=== PATIENT | male | born 1975 | race Caucasian/White ===

== ENCOUNTER 2017-11-23 10:27 | Inpatient (IN) | payer BC ==
[2017-11-23] MEDS ORDERED: IBUPROFEN 200 MG TAB PO PRN (16:11)
[2017-11-23] MEDS ORDERED: diphenhydrAMINE 25 MG CAP PO PRN (16:11)
[2017-11-23] MEDS ORDERED: PROMETHAZINE HCL 25 MG/ML INJ IVP PRN (16:16)
[2017-11-23] MEDS ORDERED: ACETAMINOPHEN 325 MG TAB PO PRN (16:16)
--- NOTE | 2017-11-23 16:52 | GHP ---
[f rep st] HISTORY AND PHYSICAL DATE OF ADMISSION: 11/23/2017 CHIEF COMPLAINT: Nausea and vomiting. 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 In September, he developed some G I distress including nausea and decreased appetite, and his family practice doctor ordered a CAT scan , which was consistent with a possible appendicitis, and he went to surgery with Dr. Grady at [facility] on September 19. 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 He was found to have an omental mets. A port was placed on October 25 and he started chemo on November 01. He was rehospitalized on at [facility], for 5 days, for small bowel obstruction and they also drained some malignant ascites. He continues on chemotherapy with his last chemo last week. Since his last chemo, he has had intractable nausea and vomiting. He has had minimal p.o. intake for 1 wee k. He is passing gas and having bowel movements, and it has been loose for the last 2 days. He desc ribes periumbilical pain that comes and goes, and does improve after an episode of flatus. There has been no fever. He has lost 41 pounds since disease onset. PAST MEDICAL HISTORY: 1. Signet ring cell carcinoma of the appendix with stage IV colon cancer and omental metastases. 2. Small bowel obstruction. MEDICATIONS: Please see computer record for full detailed list. ALLERGIES: No known drug allergies. SOCIAL HISTORY: Social alcohol, with smoking a quarter to a half a pack per day prior to his diagnos is but none since then. Lives with his , and they have 2 children. He is employed in [employer]. REVIEW OF SYSTEMS: Complete review of systems obtained. Review of systems negative regarding consti tutional, HEENT, GI, pulmonary, cardiovascular, , hematology, skin, musculoskeletal, endocrine, psy ch, except for positives and negatives as in HPI. FAMILY HISTORY: Uncle with colon cancer. A cousin with cervical cancer and lung cancer. Another co usin with testicular cancer. PHYSICAL EXAMINATION: GENERAL: Well-developed, well-nourished male, in no distress. VITAL SIGNS: Temperature 36.2, pulse 88, blood pressure 123/91, saturating 93% on room air. EYES: Normal conjunc tivae. Pupils equal and react to light. ENT: Normal ears and nose. Hearing intact. Normal teeth. Oropharynx moist. NECK: Trachea midline. No thyromegaly. CHEST: Normal effort. LUNGS: Clear t o auscultation bilaterally. CARDIOVASCULAR: Regular rate, rhythm. No murmur. No lower extremity e jayme. ABDOMEN: Soft, mildly distended. Minimal tenderness. No hepatosplenomegaly. SKIN: Warm, d ry, intact. No rash. MUSCULOSKELETAL: No cyanosis or clubbing. Strength 5/5 upper and lower extre mities. NEURO: Cranial nerves intact. Normal sensation to light touch. PSYCH: Alert and oriented x3. Normal affect. Normal judgment. Normal memory. LABORATORY DATA: White count 3.83, hematocrit 42.4, platelets 302. Sodium 141, potassium 4.4, chlor abdulkadir 100, bicarb 26. BUN 10, creatinine 0.9. Glucose 113. AST is 91, ALT is 155. Alk phos is 194. Abdominal x-ray shows a paucity of gas and possible ascites. Chest x-ray is negative. Abdominal x- ray was personally interpreted by me and my personal interpretation is similar to Radiology. Minimal gas throughout the intestines. ASSESSMENT/PLAN: 1. Intractable nausea and vomiting. Differential diagnosis is recurrent small bowel obstruction elba janine recurrent ascites versus worsening tumor. Will check a CT scan of the abdomen and pelvis. 2. Signet ring cell cancer of the appendix with stage IV colon cancer. Dr. Lazaro to see in consul tation. 3. Dramatic weight loss of 40 pounds. I suspect he is malnourished. Will consult dietary. Per Dr. Lazaro, consider TPN. CODE STATUS: Full. ADMISSION STATUS: Will admit to inpatient as he is medically complex. Anticipate greater than 2 mid nights for stabilization. DVT PROPHYLAXIS: He is high risk. Will place on subcu Lovenox. /[id number]/MODL
[2017-11-23] MEDS ORDERED: IOPAMIDOL (ISOVUE-300) 100 ML BTL ONE (17:49)
[2017-11-23] MEDS: PROCHLORPERAZINE MALEATE 10 MG TAB PO PRN (18:09)
[2017-11-23] MEDS: HYDROmorphONE/DILAUDID 2 MG TAB PO PRN (18:48)
[2017-11-23] MEDS: LORazepam 0.5 MG TAB PO PRN (18:48)
[2017-11-23] MEDS: ONDANSETRON 4 MG/2 ML VIAL IVP PRN (18:56)
[2017-11-23] MEDS ORDERED: ZOLPIDEM TARTRATE 5 MG TAB PO ONE (21:04)
[2017-11-24] MEDS: NS 1,000 ML IV SCH ×2 (03:23→16:08)
[2017-11-24 03:41] LABS: PLATELET COUNT 240 10^3/uL (150-400)
[2017-11-24] MEDS ORDERED: ENOXAPARIN 40 MG/0.4 ML SYR SC SCH (09:00)
--- NOTE | 2017-11-24 09:33 | PDMN ---
Medical Necessity Medical necessity: M370 vomiting- A-1- in pt on chemo, recurrent ascites and poss partial SBO vs worsening tumor, Signet ring cell cancer of the appendix with stage IV colon Ca. - dramatic wt. loss of 40 LBS., consider TPN, oncology consult
[2017-11-24] MEDS ORDERED: D10W 1,000 ML IV PRN (10:03)
[2017-11-24] MEDS ORDERED: LIDOCAINE 1% 300 MG/30 ML SDV ONE (10:26)
[2017-11-24 11:11] LABS: PLATELET COUNT 225 10^3/uL (150-400)
[2017-11-24 11:27] LABS: INR 1.19 (0.83-1.16); PROTIME(PATIENT) 15.3 SEC (12.0-15.0)
[2017-11-24] MEDS: ESCITALOPRAM OXALATE 10 MG TAB PO SCH (12:33)
[2017-11-24] MEDS: LORazepam 0.5 MG TAB PO PRN ×2 (12:36→19:03)
[2017-11-24] MEDS: HYDROmorphONE/DILAUDID 2 MG TAB PO PRN ×2 (13:25→19:39)
--- NOTE | 2017-11-24 14:57 | ASMTCMCOM ---
CM Note CM Note Notes: Pt present with dehydration and n/v, pt with appendix and colon cancer. Pt is having chemo treatments. Chart indicates pt lives w and two children. CT scan pending, considering bowel obstruction or worsening tumor. POWER TECHNICIAN only therapy ordered at this time. Pt to be transferred to . to follow for d/c planning. Date Signed: 11/24/2017 02:56 PM Electronically Signed By:SWATI Bobo
--- NOTE | 2017-11-24 16:11 | HOSPPROG ---
Hospitalist Progress Note Assessment/Plan: * Signet ring cell carcinoma of appendix with colon cancer - stage IV -on chemo -needs improved nutritional status for impending surgery * Malignant ascites -s/p paracentesis * Partial SBO -advance diet to clears * Severe protein calorie malnutrition -start TPN -cyclic TPN to continue upon discharge Subjective: No change, thirsty Objective: Vital Signs Temp Pulse Resp BP Pulse Ox 36.8 C 73 15 132/81 H 91 L 11/24/17 16:00 11/24/17 16:00 11/24/17 16:00 11/24/17 16:00 11/24/17 16:00 Microbiology 11/22/17 19:40 Gastrointestinal Tract Panel (PCR) - Final Stool No Organism Detected Laboratory Results 11/24/17 10:50 11/24/17 10:50 11/23/17 11/24/17 11/25/17 05:59 05:59 05:59 Intake Total 250 Output Total 2500 Balance 250 -2500 PT 15.3 SEC (12.0-15.0) H 11/24/17 10:50 INR 1.19 (0.83-1.16) H 11/24/17 10:50 case d/w Dr. Lazaro - patient to discharge with cyclic TPN - needs to be optimized for large surgery planned CT abd - ascites, partial sbo - Physical Exam Constitutional: no apparent distress, appears nourished, not in pain Cardiovascular: regular rate and rhythym, no murmur, rub, or gallop Respiratory: no respiratory distress, no rales or rhonchi, clear to auscultation Gastrointestinal: normoactive bowel sounds, soft, non-tender abdomen, no palpable masses Skin: no rashes or abrasions, no fluctuance, no induration Neurologic: AAOx3, sensation intact bilaterally Psychiatric: interacting appropriately, not anxious, not encephalopathic, thought process linear ICD10 Worksheet Patient Problems: Problems Problem Status Onset Malignant ascites Acute - ICD10 Problem Qualifiers (1) Malignant ascites
--- NOTE | 2017-11-24 16:56 | ASMTCMCOM ---
CM Note CM Note Notes: Pt transferred to this afternoon. Per MD note, pt will have cyclic TPN at DC. Sent referral to [employer] [facility] to run benefits. met with pt to discuss DC plan. recommended palliative to pt and he asked for information to share with his . This was provided. DC unclear. CM will continue to follow. Date Signed: 11/24/2017 04:56 PM Electronically Signed By:Fe Louis LCSW
--- NOTE | 2017-11-24 17:32 | GCON ---
[f rep st] CONSULTATION A MEDICAL ONCOLOGY FOLLOWUP CONSULTATION. REFERRING PHYSICIAN: Em Maria MD REASON FOR CONSULTATION: Ongoing management of signet ring adenocarcinoma of the appendix with the p eritoneal carcinomatosis. RECOMMENDATIONS: 1. Agree with clear liquids. 2. Agree with therapeutic paracentesis. 3. Patient will need nutritional support since we are trying to get him in shape for definitive surg chuy with neoadjuvant chemotherapy. TPN is appropriate in this setting. 4. The patient is due for his next cycle of chemotherapy on November 29, 2017. Hopefully, we will be able to keep him on schedule. 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 This was diagnosed when it was thought he cain d appendicitis. He has had a relatively stormy course since then. He has had 2 cycles of chemothera py thus far. He has had a very difficult time getting adequate food and fluids in. He presented wit h nausea and decreased oral intake as well as colicky abdominal pain. He was seen in the office yest shoaib and admitted for further evaluation. Patient was found to have malignant ascites as well as a partial small bowel obstruction. Currently, he is able to tolerate clear liquids and had a bowel mov ement this morning. Therefore, I do not think he is completely obstructed, and we will try conservat carlos management. His albumin is down to 2.4, and in view of the ongoing need for chemotherapy, and ho pefully to be able to get him in shape for definitive surgery with Dr. Kofi Powers in [place], and hopefu lly to get him in shape to be a candidate for hyperthermic intraperitoneal chemotherapy treatment for his intraperitoneal carcinomatosis. I think total parenteral nutrition is appropriate in this setti ng. Patient will also need home care upon discharge. HISTORY OF PRESENT ILLNESS: Please see assessment. PAST MEDICAL HISTORY: In addition to his appendiceal carcinoma, is essentially otherwise unremarkabl e. SOCIAL HISTORY: Patient drinks alcohol occasionally. He did smoke cigarettes until his diagnosis, b ut has now quit. He is employed in [employer]. Lives with his and 2 children. FAMILY HISTORY: Remarkable for an uncle having had colon cancer. There is also a cousin with cervic al and lung cancer and a cousin with testicular cancer. REVIEW OF SYSTEMS: Remarkable for poor p.o. intake, nausea, abdominal pain, weakness, and fatigue. His 10-system review is otherwise unremarkable. PHYSICAL EXAMINATION: GENERAL: This morning reveals a well developed, alert, white male in no acute distress. HEENT: No jaundice. LUNGS: Clear to auscultation. CARDIAC: Regular rate and rhythm. ABDOMEN: A slightly distended abdomen. It does seem to have a fluid wave today, and he has tendern ess just to the left of midline near his umbilicus. IMAGING: His CT of the abdomen shows ascites and a narrowed area very close to where he identifies t he pain. This is likely secondary to his known peritoneal carcinomatosis. LABORATORY EXAM: Shows sodium of 137. His potassium is 3.8. His creatinine is 0.8, and his total b ilirubin is 0.5. Albumin is 2.4. Lipase is normal at 79. His white count is normal at 4.11. His h emoglobin is 11.0, and his platelet count is 240,000. /[id number]/MODL
[2017-11-24] MEDS: TPN 1 EA BAG IV SCH (21:01)
[2017-11-24] MEDS ORDERED: ZOLPIDEM TARTRATE 5 MG TAB PO ONE (22:59)
[2017-11-25] MEDS: NS 1,000 ML IV SCH (05:09)
[2017-11-25 05:39] LABS: INR 1.15 (0.83-1.16); PROTIME(PATIENT) 14.9 SEC (12.0-15.0)
[2017-11-25 06:05] LABS: PLATELET COUNT 217 10^3/uL (150-400)
[2017-11-25] MEDS: HYDROmorphONE/DILAUDID 2 MG TAB PO PRN ×2 (09:38→18:53)
[2017-11-25] MEDS: LORazepam 0.5 MG TAB PO PRN ×2 (09:38→18:53)
[2017-11-25] MEDS: ESCITALOPRAM OXALATE 10 MG TAB PO SCH (09:39)
[2017-11-25] MEDS: ENOXAPARIN 40 MG/0.4 ML SYR SC SCH (09:39)
--- NOTE | 2017-11-25 13:02 | SOAPPROG ---
SOAP Progress Note Assessment/Plan: Assessment/Plan: 42yo man w peritoneal carcinomatosis from a signet ring adenoca of the appendix dx in oct 2017 admitted w N/V and weight loss 1. N/V - not completely obstructed but likely intermittent pSBO Continuing clears w TPN/IVF doing better today will need TPN on discharge cont anti-emetics and supportive care 2. ascites - s/p paracentesis no e/o SBP abd pain improved 3. Signet ring adenoca - nect cycle of chemo due 11/29/2017 then plan debulking w Dr Kofi Powers followed by [facility] 4. Pain - currently controlled 11/25/17 12:58 Subjective: Doing better today no vomiting +BM pain improved Objective: Vital Signs Temp Pulse Resp BP Pulse Ox 36.5 C 77 18 98/70 L 92 11/25/17 12:37 11/25/17 12:37 11/25/17 12:37 11/25/17 12:37 11/25/17 12:37 Microbiology 11/24/17 09:45 Gram Stain - Final Peritoneal Fluid - Aspirate 11/22/17 19:40 Gastrointestinal Tract Panel (PCR) - Final Stool No Organism Detected Laboratory Results 11/25/17 05:15 11/25/17 05:15 11/24/17 11/25/17 11/26/17 05:59 05:59 05:59 Intake Total 250 1790 Output Total 2500 Balance 250 -710 PT 14.9 SEC (12.0-15.0) 11/25/17 05:15 INR 1.15 (0.83-1.16) 11/25/17 05:15 Gen - young man, NAD but fatigued appearing HEENT - anicteric CV - RRR Abd - soft, BS+ Ext - no sig edema ICD10 Worksheet Patient Problems: Problems Problem Status Onset Malignant ascites Acute
--- NOTE | 2017-11-25 16:31 | HOSPPROG ---
Hospitalist Progress Note Assessment/Plan: * Signet ring adenocarcinoma of appendix with peritoneal carcinomatosis -on chemo -eventual hyperthermic intraperitoneal chemo with debulking surgery (Dr. Powers) -needs improved nutritional status for impending surgery * Malignant ascites -s/p paracentesis * Partial SBO -try full liquids - if not able to tolerate will back down to clears * Severe protein calorie malnutrition -start TPN -cyclic TPN to continue upon discharge Subjective: Tolerating clears, really want to try something more solid, specifically fruit and [employer] parfait Objective: Vital Signs Temp Pulse Resp BP Pulse Ox 36.5 C 77 18 98/70 L 92 11/25/17 12:37 11/25/17 12:37 11/25/17 12:37 11/25/17 12:37 11/25/17 12:37 Microbiology 11/24/17 09:45 Gram Stain - Final Peritoneal Fluid - Aspirate Laboratory Results 11/25/17 05:15 11/25/17 05:15 11/24/17 11/25/17 11/26/17 05:59 05:59 05:59 Intake Total 250 1790 Output Total 2500 Balance 250 -710 PT 14.9 SEC (12.0-15.0) 11/25/17 05:15 INR 1.15 (0.83-1.16) 11/25/17 05:15 - Physical Exam Constitutional: no apparent distress, appears nourished, not in pain Cardiovascular: regular rate and rhythym, no murmur, rub, or gallop Respiratory: no respiratory distress, no rales or rhonchi, clear to auscultation Gastrointestinal: normoactive bowel sounds, soft, non-tender abdomen, no palpable masses Skin: no rashes or abrasions, no fluctuance, no induration Neurologic: AAOx3, sensation intact bilaterally Psychiatric: interacting appropriately, not anxious, not encephalopathic, thought process linear ICD10 Worksheet Patient Problems: Problems Problem Status Onset Malignant ascites Acute - ICD10 Problem Qualifiers (1) Malignant ascites
[2017-11-25] MEDS: TPN 1 EA BAG IV SCH (21:03)
[2017-11-25] MEDS: ZOLPIDEM TARTRATE 5 MG TAB PO PRN (22:56)
[2017-11-26 05:52] LABS: PLATELET COUNT 222 10^3/uL (150-400)
[2017-11-26 05:59] LABS: INR 1.1 (0.83-1.16); PROTIME(PATIENT) 14.4 SEC (12.0-15.0)
[2017-11-26] MEDS: ESCITALOPRAM OXALATE 10 MG TAB PO SCH (10:12)
[2017-11-26] MEDS: ENOXAPARIN 40 MG/0.4 ML SYR SC SCH (10:12)
[2017-11-26] MEDS: HYDROmorphONE/DILAUDID 2 MG TAB PO PRN ×2 (10:50→18:05)
[2017-11-26] MEDS: LORazepam 0.5 MG TAB PO PRN ×2 (10:50→18:05)
--- NOTE | 2017-11-26 10:53 | SOAPPROG ---
SOAP Progress Note Assessment/Plan: Assessment/Plan: 42yo man w peritoneal carcinomatosis from a signet ring adenoca of the appendix dx in oct 2017 admitted w N/V and weight loss 1. N/V - not completely obstructed but likely intermittent pSBO Continuing clears w TPN/IVF doing better tolerated clears yesterday would advance to soft/bland diet today will need TPN on discharge cont anti-emetics and supportive care 2. ascites - s/p paracentesis no e/o SBP abd pain improved 3. Signet ring adenoca - next cycle of chemo due 11/29/2017 then plan debulking w Dr Kofi Powers followed by [facility] 4. Pain - currently controlled discharge in next day or so 11/25/17 12:58 11/26/17 10:52 Subjective: No acute events tolerated clears yesterday feeling stronger Objective: Vital Signs Temp Pulse Resp BP Pulse Ox 36.7 C 75 18 104/72 94 11/26/17 05:35 11/26/17 05:35 11/26/17 05:35 11/26/17 05:35 11/26/17 05:35 Microbiology 11/24/17 09:45 Gram Stain - Final Peritoneal Fluid - Aspirate Laboratory Results 11/26/17 05:40 11/26/17 05:40 11/25/17 11/26/17 11/27/17 05:59 05:59 05:59 Intake Total 1790 3092 Output Total 2500 250 Balance -710 2842 PT 14.4 SEC (12.0-15.0) 11/26/17 05:40 INR 1.10 (0.83-1.16) 11/26/17 05:40 Gen - NAD HEENT - anicteric CV - RRR Lungs - clear anteriorly Abd - soft, BS+, no sig ascites Ext - no edema ICD10 Worksheet Patient Problems: Problems Problem Status Onset Malignant ascites Acute
--- NOTE | 2017-11-26 15:54 | HOSPPROG ---
Hospitalist Progress Note Assessment/Plan: * Signet ring adenocarcinoma of appendix with peritoneal carcinomatosis (but no mets) -on chemo -eventual hyperthermic intraperitoneal chemo with debulking surgery (Dr. Powers) -needs improved nutritional status for impending surgery * Malignant ascites -s/p paracentesis * Partial SBO -did poorly with advancing diet - will return to liquids * Severe protein calorie malnutrition -cyclic TPN to continue upon discharge -uses port for continuous chemo infusion at home -may need PICC for TPN Subjective: Ate eggs and toast with increased GI upset, but thinks GI upset was coming on already before he ate them, so not sure they are to blame. Objective: Vital Signs Temp Pulse Resp BP Pulse Ox 36.7 C 105 H 18 124/94 H 94 11/26/17 15:46 11/26/17 15:46 11/26/17 15:46 11/26/17 15:46 11/26/17 15:46 Microbiology 11/24/17 09:45 Gram Stain - Final Peritoneal Fluid - Aspirate Laboratory Results 11/26/17 05:40 11/26/17 05:40 11/25/17 11/26/17 11/27/17 05:59 05:59 05:59 Intake Total 1790 3092 Output Total 2500 250 Balance -710 2842 PT 14.4 SEC (12.0-15.0) 11/26/17 05:40 INR 1.10 (0.83-1.16) 11/26/17 05:40 - Physical Exam Constitutional: no apparent distress, appears nourished, not in pain Cardiovascular: regular rate and rhythym, no murmur, rub, or gallop Respiratory: no respiratory distress, no rales or rhonchi, clear to auscultation Gastrointestinal: normoactive bowel sounds, soft, non-tender abdomen, no palpable masses Skin: no rashes or abrasions, no fluctuance, no induration Neurologic: AAOx3, sensation intact bilaterally Psychiatric: interacting appropriately, not anxious, not encephalopathic, thought process linear ICD10 Worksheet Patient Problems: Problems Problem Status Onset Malignant ascites Acute - ICD10 Problem Qualifiers (1) Malignant ascites
[2017-11-26] MEDS: TPN 1 EA BAG IV SCH (22:04)
[2017-11-26] MEDS ORDERED: ALTEPLASE 2 MG VIAL IVP PRN (22:56)
[2017-11-27] MEDS: ZOLPIDEM TARTRATE 5 MG TAB PO PRN ×2 (00:04→23:16)
[2017-11-27 06:19] LABS: PLATELET COUNT 203 10^3/uL (150-400)
[2017-11-27 06:28] LABS: INR 1.06 (0.83-1.16)
[2017-11-27] MEDS: ENOXAPARIN 40 MG/0.4 ML SYR SC SCH (09:37)
[2017-11-27] MEDS: ESCITALOPRAM OXALATE 10 MG TAB PO SCH (09:37)
[2017-11-27] MEDS: HYDROmorphONE/DILAUDID 2 MG TAB PO PRN ×3 (09:43→20:04)
[2017-11-27] MEDS: LORazepam 0.5 MG TAB PO PRN ×3 (09:43→20:05)
[2017-11-27] MEDS ORDERED: ALTEPLASE 2 MG VIAL IVP PRN (11:59)
--- NOTE | 2017-11-27 11:59 | HOSPPROG ---
Hospitalist Progress Note Assessment/Plan: * Signet ring adenocarcinoma of appendix with peritoneal carcinomatosis, no mets -on chemo -eventual hyperthermic intraperitoneal chemo with debulking surgery (Dr. Powers) -needs improved nutritional status for impending surgery -needs Rx at dc for dexter ornelas amblula * Malignant ascites -s/p paracentesis for 2.5 L on 11/24, no recurrence * Partial SBO - +BM x2 today, tolerating po better * Severe protein calorie malnutrition -cyclic TPN to continue upon discharge -uses port for continuous chemo infusion at home -plan for PICC today * DVT PPLX - Lovenox * Full code * Dispo - cont inpt, likely dc tomorrow. discussed with onc Subjective: PT doing ok. No pain. No vomiting. +BM x2, tolerating some po. no fevers. Objective: Vital Signs Temp Pulse Resp BP Pulse Ox 36.8 C 78 16 101/74 95 11/27/17 09:35 11/27/17 09:35 11/27/17 09:35 11/27/17 09:35 11/27/17 09:35 Microbiology 11/24/17 09:45 Gram Stain - Final Peritoneal Fluid - Aspirate Laboratory Results 11/27/17 06:10 11/27/17 06:10 11/26/17 11/27/17 11/28/17 05:59 05:59 05:59 Intake Total 3092 1805 Output Total 250 Balance 2842 1805 PT 14.0 SEC (12.0-15.0) 11/27/17 06:10 INR 1.06 (0.83-1.16) 11/27/17 06:10 - Physical Exam Constitutional: no apparent distress Eyes: PERRL Ears, Nose, Mouth, Throat: moist mucous membranes Cardiovascular: regular rate and rhythym Respiratory: no respiratory distress Gastrointestinal: normoactive bowel sounds, soft, non-tender abdomen Skin: warm Musculoskeletal: full muscle strength Neurologic: AAOx3 Psychiatric: interacting appropriately ICD10 Worksheet Patient Problems: Problems Problem Status Onset Malignant ascites Acute
--- NOTE | 2017-11-27 12:49 | ASMTCMCOM ---
CM Note CM Note Notes: Loreta from [facility] here and met w/pt. They will follow pt at dc for cyclic TPN; They will most likely be able to provide nursing care also. Referral was sent to [facility] by they do not contract w/pt's insurance. Possible dc tomorrow. Current dc plan: home w/family, will be followed by [facility] for Home inf and Nursing Date Signed: 11/27/2017 12:49 PM Electronically Signed By:Esthela Mosquera RN
[2017-11-27] MEDS ORDERED: LIDOCAINE 1% 300 MG/30 ML SDV ONE (13:34)
[2017-11-27] MEDS: HYDROmorphONE/DILAUDID 1 MG/ML INJ IVP PRN ×2 (14:47→23:16)
--- NOTE | 2017-11-27 15:11 | SOAPPROG ---
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 * N/V/pain: likely intermittent partial SBO. Improved this admission. Plan supportive care with TPN, diet as tolerated, and pain meds while moving forward with chemo. * Ascites: paracentesis 11/24/17 with improvement in AP. * Peritoneal carcinomatosis, signet ring adenoCA: C3 FOLFOX due 11/29/17. He is scheduled with Dr. Lazaro. Discussed with pt, , RN. Anticipate d/c home tomorrow on TPN, oral pain meds. 11/27/17 15:08 Subjective: Pain manageable with current regimen. Awaiting PICC line. O: VS reviewed. Limited exam as leaving for PICC. Gen: fatigued appearing, A&O, NAD. Lungs: breathing comfortably. Laboratory Tests 11/27/17 11/27/17 06:10 06:10 WBC 3.31 L Hgb 11.8 L Hct 35.8 L Plt Count 203 Sodium 138 Potassium 4.1 Chloride 103 Carbon Dioxide 29 Anion Gap 6 L BUN 10 Creatinine 0.7 Estimated GFR > 60 Glucose 110 H Total Bilirubin 0.1 D AST 59 ALT 96 H Alkaline Phosphatase 127 H Objective: Vital Signs Temp Pulse Resp BP Pulse Ox 36.8 C 84 18 119/78 95 11/27/17 09:35 11/27/17 12:31 11/27/17 12:31 11/27/17 12:31 11/27/17 12:31 Microbiology 11/24/17 09:45 Gram Stain - Final Peritoneal Fluid - Aspirate Body Fluid Culture - Final Laboratory Results 11/27/17 06:10 11/27/17 06:10 11/26/17 11/27/17 11/28/17 05:59 05:59 05:59 Intake Total 3092 1805 Output Total 250 Balance 2842 1805 PT 14.0 SEC (12.0-15.0) 11/27/17 06:10 INR 1.06 (0.83-1.16) 11/27/17 06:10 ICD10 Worksheet Patient Problems: Problems Problem Status Onset Malignant ascites Acute
[2017-11-27] MEDS: TPN 1 EA BAG IV SCH (21:21)
[2017-11-28] MEDS: PROCHLORPERAZINE MALEATE 10 MG TAB PO PRN (08:09)
[2017-11-28] MEDS: ESCITALOPRAM OXALATE 10 MG TAB PO SCH (08:09)
[2017-11-28] MEDS: ENOXAPARIN 40 MG/0.4 ML SYR SC SCH (09:13)
[2017-11-28] MEDS: LORazepam 0.5 MG TAB PO PRN ×2 (09:36→20:02)
[2017-11-28] MEDS: ONDANSETRON 4 MG/2 ML VIAL IVP PRN (09:37)
[2017-11-28] MEDS: HYDROmorphONE/DILAUDID 2 MG TAB PO PRN ×2 (09:37→20:01)
--- NOTE | 2017-11-28 10:05 | HOSPPROG ---
Hospitalist Progress Note Assessment/Plan: * Signet ring adenocarcinoma of appendix with peritoneal carcinomatosis, no mets, has PORT -due for chemo tomorrow, which may be delayed until tolerating TPN changes, discussed with onc -eventual hyperthermic intraperitoneal chemo with debulking surgery (Dr. Powers) -needs improved nutritional status for impending surgery -requests Rx at discharge for dilaudid, ativan, ambien * Malignant ascites -s/p paracentesis for 2.5 L on 11/24, no recurrence -may require repeat para vs shirley drain if recurs * Partial SBO - tolerating po better, but increased diarrhea this am (?12/08 tpn) * Severe protein calorie malnutrition - cyclic TPN started last night (changed from 70 / hr for 24 hrs to 140 / hr for 12 hrs) and pt did not tolerate this increased rate with nausea and diarrhea this am -PICC in place -will reduce rate of cyclic TPN and increase to 14 hr infusion, may take a few days to slowly increase to goal to see if he'll tolerate the cyclical plan * Hyperkalemia - likely due to TPN changes -reduce K in TPN, discussed with pharmacy -repeat K 5.1 * Diarrhea - likely due to TPN. -check C diff if persists -immodium if persists and c diff neg * DVT PPLX - Lovenox * Full code * Dispo - cont inpt, d/c when tolerating TPN and symptoms improved Subjective: Pt had a rough night with doubling rate of tpn in attempt to change to cyclic plan. Severe nausea, no vomiting. +diarrhea, multiple watery stools this am with increased abdominal distention and discomfort. No fevers. Objective: Vital Signs Temp Pulse Resp BP Pulse Ox 36.8 C 103 H 16 112/76 91 L 11/28/17 08:00 11/28/17 08:00 11/28/17 08:00 11/28/17 08:00 11/28/17 08:00 Microbiology 11/24/17 09:45 Gram Stain - Final Peritoneal Fluid - Aspirate Body Fluid Culture - Final Laboratory Results 11/27/17 06:10 11/28/17 06:00 11/27/17 11/28/17 11/29/17 05:59 05:59 05:59 Intake Total 1805 2343 Balance 1805 2343 PT 14.0 SEC (12.0-15.0) 11/27/17 06:10 INR 1.06 (0.83-1.16) 11/27/17 06:10 - Physical Exam Constitutional: no apparent distress Eyes: PERRL Ears, Nose, Mouth, Throat: moist mucous membranes Cardiovascular: regular rate and rhythym Respiratory: no respiratory distress, clear to auscultation Gastrointestinal: normoactive bowel sounds, other (soft, +increased distention, no r/r/g or peritoneal signs) Skin: warm Musculoskeletal: full muscle strength Neurologic: AAOx3 Psychiatric: interacting appropriately ICD10 Worksheet Patient Problems: Problems Problem Status Onset Malignant ascites Acute
--- NOTE | 2017-11-28 18:26 | ASMTCMCOM ---
CM Note CM Note Notes: Spoke with Loreta from [facility] who requested a copy of patient's PICC line insertion. This report was faxed to her. Patient was not quite ready for d/c. Dr. Thurston would like patient to tolerate TPN and have additional symptom improvement before d/c. CM will follow. Date Signed: 11/28/2017 06:26 PM Electronically Signed By:Alicia Hubbard LCSW
[2017-11-28] MEDS: TPN 1 EA BAG IV SCH (21:15)
[2017-11-28] MEDS: ZOLPIDEM TARTRATE 5 MG TAB PO PRN (23:50)
[2017-11-28] MEDS: HYDROmorphONE/DILAUDID 1 MG/ML INJ IVP PRN (23:51)
[2017-11-29] MEDS: LORazepam 0.5 MG TAB PO PRN ×2 (11:37→21:06)
[2017-11-29] MEDS: HYDROmorphONE/DILAUDID 2 MG TAB PO PRN ×3 (11:37→20:20)
[2017-11-29] MEDS: ENOXAPARIN 40 MG/0.4 ML SYR SC SCH (12:01)
[2017-11-29] MEDS: ESCITALOPRAM OXALATE 10 MG TAB PO SCH (12:02)
--- NOTE | 2017-11-29 13:10 | ASMTCMCOM ---
CM Note CM Note Notes: Pt will likely dc home tomorrow if able to tolerate TPN goal tonight. Met w/pt along w/MD and pharmacist and answered pt and 's questions. He will be doing cylic (evening til morning) TPN at home. [facility] will provide TPN/supplies/nursing care. TPN formula faxed to [facility] per request. Pt will be going to [facility] tomorrow afternoon for chemo. Loreta from [facility] will be here btw 8:30-9 tomorrow morning to see pt. CM will follow. Date Signed: 11/29/2017 01:10 PM Electronically Signed By:Esthela Mosquera RN
--- NOTE | 2017-11-29 13:14 | SOAPPROG ---
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 Had increased sxs yesterday attributed to changing TPN to cyclic. * N/V/pain: likely intermittent partial SBO. Improved this admission. Plan supportive care with TPN, diet as tolerated, and pain meds while moving forward with chemo. * Ascites: paracentesis 11/24/17 with improvement in AP. * Peritoneal carcinomatosis, signet ring adenoCA: C3 FOLFOX due today. Anticipate d/c tomorrow morning and plan chemo in office after d/c. Dr. Lazaro aware. - have asked [facility] scheduling to contact pt's to schedule chemo tomorrow * Pain: due to above. *I sent prescriptions to his pharmacy for dilaudid, lorazepam, Ambien per his 's request. They do not need written rxs on discharge.* Discussed with pt, , RN. Anticipate d/c home tomorrow on TPN, oral pain meds. 11/29/17 13:10 Objective: Vital Signs Temp Pulse Resp BP Pulse Ox 36.6 C 77 16 107/74 93 11/29/17 09:53 11/29/17 09:53 11/29/17 09:53 11/29/17 09:53 11/29/17 09:53 Laboratory Results 11/27/17 06:10 11/29/17 05:30 11/28/17 11/29/17 11/30/17 05:59 05:59 05:59 Intake Total 2343 2361 Output Total 500 Balance 2343 1861 PT 14.0 SEC (12.0-15.0) 11/27/17 06:10 INR 1.06 (0.83-1.16) 11/27/17 06:10 ICD10 Worksheet Patient Problems: Problems Problem Status Onset Malignant ascites Acute
--- NOTE | 2017-11-29 16:43 | HOSPPROG ---
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 ASSESSMENT/PLAN: Signet ring adenocarcinoma of appendix, with peritoneal carcinomatosis Partial SBO w/ N/V - resolved Severe protein calorie malnutrition -s/p paracentesis, therapeutic -eventual hyperthermic intraperitoneal chemo with debulking surgery (Dr. Powers) -TPN - discussed with pharmacist - increasing volume today (goal 1.6L) -if pt tolerates TPN at goal by tomorrow AM, DC to home w/ HHC w/ TPN - CM planning. -after DC tomorrow, he will fruit picker chemo pump from [facility] (appt at 1pm), discussed with onc -Controlled substances for discharge sent by Dr. Perry to pharmacy. VTE prophylaxis: Lovenox Code Status: Full Status inpt for > 2 midnight stay. Disposition: medsur with discharge anticipated tomorrow. This pt is new to me. Reviewed chart for visit. Discussed case w/ Oncology, RN, pharmacist, and CM. Answered questions of pt and his . ____ SUBJECTIVE: Pt feels well today, tolerating clear liquids. OBJECTIVE: Physical Exam: General: The patient is a male who is alert and in no acute distress. HEENT: normocephalic, extraocular movements intact, conjunctivae clear. Mucous membranes moist. Neck: trachea midline, no visible masses. CV: +S1/S2, RRR, no MRG. Resp: unlabored, CTAB no RRW. Abd: soft and nondistended. Bowel sounds present. Musculoskeletal: Normal muscle tone/bulk. Neuro: cranial nerves II XII grossly intact. Intact gross motor and sensory function. Psych: appropriate mood and appropriate affect. Skin: No pallor. No petechiae. Heme/lymph: No peripheral edema at bilateral lower legs. Labs/Imaging/Other Tests: Personally reviewed/interpreted. Objective: Vital Signs Temp Pulse Resp BP Pulse Ox 36.8 C 104 H 17 93/77 L 94 11/29/17 15:19 11/29/17 15:19 11/29/17 15:19 11/29/17 15:19 11/29/17 15:19 Laboratory Results 11/27/17 06:10 11/29/17 05:30 11/28/17 11/29/17 11/30/17 05:59 05:59 05:59 Intake Total 2343 2361 Output Total 500 Balance 2343 1861 PT 14.0 SEC (12.0-15.0) 11/27/17 06:10 INR 1.06 (0.83-1.16) 11/27/17 06:10 ICD10 Worksheet Patient Problems: Problems Problem Status Onset Malignant ascites Acute
[2017-11-29 20:14] VITALS: RESP 16
[2017-11-29] MEDS: TPN 1 EA BAG IV SCH (21:03)
[2017-11-29] MEDS: ZOLPIDEM TARTRATE 5 MG TAB PO PRN (22:58)
[2017-11-29] MEDS: HYDROmorphONE/DILAUDID 1 MG/ML INJ IVP PRN (23:02)
[2017-11-30] MEDS: ESCITALOPRAM OXALATE 10 MG TAB PO SCH (09:29)
[2017-11-30] MEDS: ENOXAPARIN 40 MG/0.4 ML SYR SC SCH (09:29)
[2017-11-30 09:39] VITALS: BP 113/78; PULSE 86; TEMP 98.1; O2SAT 93
[2017-11-30] MEDS: HYDROmorphONE/DILAUDID 2 MG TAB PO PRN (11:03)
[2017-11-30] MEDS: LORazepam 0.5 MG TAB PO PRN (11:05)
--- NOTE | 2017-11-30 12:00 | PDIAF ---
- Diagnosis Diagnosis: Adenocarcinoma Code Status: Full Code - Medication Management Discharge Medications: Medications to Continue on Transfer Escitalopram Oxalate [Lexapro 10 MG] 10 mg PO DAILY 11/23/17 [Last Taken ] HYDROmorphone HCL [Dilaudid 2 mg (*)] 2 mg PO Q6 PRN 11/23/17 [Last Taken Unknown] Ibuprofen [Motrin (*)] 200 - 400 mg PO Q6 PRN 11/23/17 [Last Taken Unknown] LORazepam [Ativan (*)] 0.5 - 1 mg PO BID PRN 11/23/17 [Last Taken Unknown] Prochlorperazine Maleate [Compazine 10mg (*)] 10 mg PO Q6 PRN 11/23/17 [Last Taken Unknown] Promethazine HCl [Phenergan 12.5mg tab] 12.5 mg PO Q6 PRN 11/23/17 [Last Taken Unknown] diphenhydrAMINE [Benadryl 25 MG (*)] 25 - 50 mg PO HS PRN 11/23/17 [Last Taken Unknown] TPN [Hyperalimentation] 1 ea IV DAILY21 bag 11/30/17 [Last Taken Unknown] Home Improvement Advisor Antibiotics: NA Discharge Medications: Refer to the Discharge Home Medication list for PRN reason. PICC Care - Routine: Yes - Orders Services needed: Home Care, Registered Nurse Home Care Face to Face: I certify that this patient was under my care and that I had the required [id number] encounter meeting the encounter requirements on the discharge day. My findings support the fact that the patient is homebound as defined in Home Care Face to Face Continued: CMS Chapter 7 Medicare Benefits Manual 30.1.1 , The condition of the patient is such that there exists a normal inability to leave home and consequently, leaving home would require a considerable and taxing effort. Isolation Type: None Oxygen: NA Diet Recommendation: no restrictions on diet Weigh Patient: weekly Diaz: Not applicable - Labs/Radiology CMP Date: 12/04/17 (weekly thereafter) Call or Fax Lab and Imaging Results to: Dr. Lazaro - Follow Up Care Current Providers and Referrals: Patient,NotPresent [Primary Care Provider] - Carlitos Mai MD [Medical Doctor] - Ricardo Lazaro MD [Medical Doctor] - (please follow-up as scheduled)
--- NOTE | 2017-11-30 13:25 | ASMTCMCOM ---
CM Note CM Note Notes: Pt ready for DC today. [facility] will provide TPN and RN. Faxed final orders via [employer]. [facility] will meet pt at home at 6PM today. Date Signed: 11/30/2017 01:25 PM Electronically Signed By:Fe Louis LCSW
--- NOTE | 2017-11-30 13:26 | ASDISCHSUM ---
Discharge Information Plan Status:Has needs-TBD Medically Cleared to Leave: Discharge Date:11/30/2017 12:00 PM CM D/C Disposition: ADT D/C Disposition:Home Health Service Projected Discharge Date:11/27/2017 11:00 AM Transportation at D/C: Discharge Delay Reason: Follow-Up Date:11/27/2017 11:00 AM Discharge Slot: Final Diagnosis: Placement Information Referral Type:Home Infusion Referral ID:[id number] Provider Name:[facility] Address 1:[address] Address 2: City:[place] Selection Factors: State:[place] Referral Type:*Home Health Care Services Referral ID:[id number] Provider Name: Address 1: Phone Number: Address 2: Fax Number: City: Selection Factors: State: Patient Contact Information Contact Name:KAMRYN Relationship: Address:[address] Work Phone: City:[facility] Phone: [facility]/Zip Code:[place] [address] Email: Financial Information Financial Class:HMO and PPO Plans Primary Plan Desc:BC OUT OF STATE PPO Primary Plan Number:[id number] Secondary Plan Desc: Secondary Plan Number: Assessment Information [employer] Progress Note CM Note CM Note Notes: Pt present with dehydration and n/v, pt with appendix and colon cancer. Pt is having chemo treatments. Chart indicates pt lives w and two children. CT scan pending, considering bowel obstruction or worsening tumor. [employer]W MEMBER only therapy ordered at this time. Pt to be transferred to [facility] to follow for d/c planning. Date Signed: 11/24/2017 02:56 PM Electronically Signed By:SWATI Bobo [facility] CM Progress Note CM Note CM Note Notes: Pt transferred to this afternoon. Per MD note, pt will have cyclic TPN at [place]. Sent referral to [facility] [employer] to run benefits. met with pt to discuss DC plan. recommended palliative to pt and he asked for information to share with his . This was provided. DC unclear. CM will continue to follow. Date Signed: 11/24/2017 04:56 PM Electronically Signed By:Fe Louis LCSW [facility] CM Progress Note CM Note CM Note Notes: Loreta from [facility] here and met w/pt. They will follow pt at [facility] for cyclic TPN; They will most likely be able to provide nursing care also. Referral was sent to [employer] by they do not contract w/pt's insurance. Possible dc tomorrow. Current dc plan: home w/family, will be followed by [facility] for Home inf and Nursing Date Signed: 11/27/2017 12:49 PM Electronically Signed By:Esthela Mosquera RN [facility] CM Progress Note CM Note CM Note Notes: Spoke with Loreta from [employer] who requested a copy of patient's PICC line insertion. This report was faxed to her. Patient was not quite ready for d/c. Dr. Thurston would like patient to tolerate TPN and have additional symptom improvement before d/c. CM will follow. Date Signed: 11/28/2017 06:26 PM Electronically Signed By:Alicia Hubbard LCSW [facility] CM Progress Note CM Note CM Note Notes: Pt will likely dc home tomorrow if able to tolerate TPN goal tonight. Met w/pt along w/MD and pharmacist and answered pt and 's questions. He will be doing cylic (evening til morning) TPN at home. [facility] will provide TPN/supplies/nursing care. TPN formula faxed to [facility] per request. Pt will be going to [facility] tomorrow afternoon for chemo. Loreta from [facility] will be here btw 8:30-9 tomorrow morning to see pt. CM will follow. Date Signed: 11/29/2017 01:10 PM Electronically Signed By:Esthela Mosquera RN [facility] CM Progress Note CM Note CM Note Notes: Pt ready for DC today. [facility] will provide TPN and RN. Faxed final orders via [employer]. [facility] will meet pt at home at 6PM today. Date Signed: 11/30/2017 01:25 PM Electronically Signed By:Fe Louis LCSW Intervention Information
--- NOTE | 2017-11-30 16:50 | PDDCSUM ---
Discharge Summary Discharge Summary: DISCHARGE SUMMARY FOLLOW-UP ITEMS: chemotherapy afternoon of discharge DATE OF ADMISSION: 11/23/2017 DATE OF DISCHARGE: 11/30/2017 DISCHARGE DIAGNOSES: 1. 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 Malignant ascites 3. Acute partial small-bowel obstruction 4. Severe protein calorie malnutrition 5. Acute hyperkalemia 6. Acute diarrhea CONSULTATIONS: Oncology PROCEDURES / IMAGING: Therapeutic paracentesis 2.5 L PICC line insertion CHIEF COMPLAINT: Acute nausea and vomiting SUBJECTIVE: Patient is feeling well at time of discharge, his abdominal pain and nausea well treated PHYSICAL EXAM ON DISCHARGE: Systolic blood pressure 130, heart rate 80, overnight, satting on room air, alert awake oriented x3, abdomen is soft, minimally tender to moderate palpation, bowel sounds present, lungs are clear to auscultation bilaterally, heart rhythm is regular LABS ON DISCHARGE: Hemoglobin 11.8, creatinine 0.7 AST 64, ALT 90, alk phos 122 HOSPITAL COURSE BY PROBLEM: 1. Acute partial small-bowel obstruction. Resulting in patient's acute nausea vomiting and abdominal pain in the setting of malignant ascites from a signet ring adenocarcinoma of the appendix with peritoneal carcinomatosis. The patient was treated supportively with IV fluids, IV pain medications and antiemetics. He did undergo a therapeutic paracentesis and he may require repeat paracentesis versus [place] drain in the future if malignant ascites becomes pervasive. He is due for chemotherapy with after this hospitalization and he may consider hyperthermic intraperitoneal chemotherapy with debulking surgery in the future. 2. Severe protein calorie malnutrition. Evidenced by reduction oral intake, dietary consult demonstrating she meets aspirin criteria, patient required cyclic TPN and this will be continued at time of discharge. 3. Acute hyperkalemia. Likely secondary to TPN changes, adjustments were made , patient had a safe potassium level 5.1 at discharge. 4. Acute diarrhea. Most likely secondary to peritoneal carcinomatosis, as well as adenocarcinoma of the appendix, if manageable at time of discharge. DISCHARGE MEDICATIONS: Please see official discharge medication reconciliation sheet in chart , continued on home Dilaudid and Ativan, no other additional medications prescribed. DISCHARGE INSTRUCTIONS: Patient will follow up at [facility] for chemotherapy on the day discharge. Greater than 30 min spent on direct patient care as well as discharge planning and preparation with case management and home healthcare agency.
== END 2017-11-30 12:00 | disposition home health service (06) | DRG 374 ==
LOC: FIMAGING 10:27 → F3N 15:14 → F1N 11-24 15:28
PROVIDERS: ADMIT Internal Medicine; ATTEND Internal Medicine
PROC: 0W9G3ZZ Drainage of Peritoneal Cavity, Percutaneous Approach (ICD-10-PCS; principal; 2017-11-24)
PROC: 02HV33Z Insertion of Infusion Device into Superior Vena Cava, Percutaneous Approach (ICD-10-PCS; 2017-11-27)
DX: C78.6 Secondary malignant neoplasm of retroperitoneum and peritoneum (principal); K56.690 Other partial intestinal obstruction; R18.0 Malignant ascites; C18.9 Malignant neoplasm of colon, unspecified; C18.1 Malignant neoplasm of appendix; E43 Unspecified severe protein-calorie malnutrition; E87.5 Hyperkalemia; Z87.891 Personal history of nicotine dependence
CPT/HCPCS: C1751; J1170; J1650; J2405; J2997; Q9967

== ENCOUNTER 2018-03-01 13:18 | Outpatient (CLI) | payer BC ==
[2018-03-01] MEDS ORDERED: ACETAMINOPHEN 325 MG TAB PO ONE (13:45)
[2018-03-01] MEDS ORDERED: diphenhydrAMINE 25 MG CAP PO ONE (13:45)
== END 2018-03-01 20:06 | disposition home or self-care (01) ==
LOC: FOBOP 13:18
PROVIDERS: ATTEND Internal Medicine Hematology & Oncology
PROC: 30233N1 Transfusion of Nonautologous Red Blood Cells into Peripheral Vein, Percutaneous Approach (ICD-10-PCS; principal; 2018-03-01)
DX: C18.1 Malignant neoplasm of appendix (principal); F41.9 Anxiety disorder, unspecified; R18.0 Malignant ascites; E86.0 Dehydration; R11.2 Nausea with vomiting, unspecified; R52 Pain, unspecified
CPT/HCPCS: 36430; P9016; J1642

== ENCOUNTER 2018-03-02 16:18 | Inpatient (IN) | payer BC ==
[2018-03-02] MEDS ORDERED: ACETAMINOPHEN 325 MG TAB PO PRN (17:22)
[2018-03-02] MEDS ORDERED: ONDANSETRON 4 MG/2 ML VIAL IVP PRN (17:22)
[2018-03-02] MEDS: PIPERACILLIN/TAZO 3.375 GM/DEX 50 ML IV SCH (17:50)
[2018-03-02] MEDS ORDERED: VANCOMYCIN HCL/NORMAL SALINE 250 ML IV SCH (18:00)
--- NOTE | 2018-03-02 18:17 | GHP ---
[f rep st] HISTORY AND PHYSICAL DATE OF ADMISSION: 03/02/2018 The patient is a pleasant 43-year-old gentleman with a history of appendiceal cancer diagnosed in Sep. He underwent a debulking surgery with Dr. Juanpablo Grady and was admitted here in Nov with nausea and decreased appetite. He was recently seen at [facility] in [place] for a debulking surgery. That was complicated b y what sounds like an incidental colotomy and he had 2 subsequent surgeries. He was discharged on Ap ril 3rd with a wound VAC, TPN and IV antibiotics via a PICC line. His has noted some ongoing co nfusion since then which got acutely worse overnight. He is on a stable dose of narcotics that he cain s tolerated without confusion. He does not use medical marijuana products, does not drink alcohol. As an example of this, he thought his was an sourcing internship's . He has had some nausea and vomiting that began overnight. It was initially clear and became bilious. His also notes that his abdomen is distended. He presented as a sick call to [facility] where they were unable to control his alan sea and vomiting. They sai some labs at that time showing leukocytosis, baseline hemoglobin, modest ly elevated alkaline phosphatase, and decreased serum bicarb at 18. He was transferred here for care after I discussed the case with Eryn , ADONIS. When I see th e patient, he is confused but alert. He is pleasant. He is not really complaining of anything. He thinks he had a CAT scan yesterday. Much of the history is obtained from his , who corroborates that his pain medication use has been stable and she has some concern about his overall trajectory. REVIEW OF SYSTEMS: Complete 10-point review of systems conducted, negative except as noted in the HP I. PAST MEDICAL HISTORY: Appendiceal cancer. He also has iron deficiency anemia, malignant ascites, re cent colotomy, TPN, nausea, vomiting. It is not known if he has intracranial metastases. ALLERGIES: No known drug allergies. HOME MEDICATIONS: Unknown antibiotic; this is probably something such as ertapenem as it is given on ce a day. He is also taking hydrocodone with acetaminophen, Lexapro, lorazepam, metoprolol tartrate, ondansetron, promethazine, Seroquel, vitamin D3. SOCIAL HISTORY: Is . Lives in [place]. Two children. FAMILY HISTORY: Negative for appendiceal cancer. PHYSICAL EXAMINATION: VITAL SIGNS: Temp 36.7, blood pressure 127/86, pulse 106, breathing 16 times a minute, 92% on room air. GENERAL: Thin, chronically ill appearing. HEENT: Sclerae anicteric. O ropharynx clear. Mucous membranes are moist. NECK: Supple without lymphadenopathy or JVD. LUNGS: Clear to auscultation bilaterally. HEART: S1, S2. Borderline tachycardic. ABDOMEN: Soft, disten ded. Bowel sounds are essentially absent. His wound VAC is clean, dry, and intact with no surroundi ng cellulitis. LOWER EXTREMITIES: Without edema. Calves nontender. SKIN: Without rash. NEUROLOG IC: Notable for encephalopathic patient. His PICC line site is clean, dry, intact without surrounding erythema. LABORATORY DATA: Sodium 140, potassium 4.4, chloride 104, bicarb 18, BUN 19, creatinine 0.5, glucose is 125. This is an anion gap acidosis with an anion gap of 18. Venous lactate is pending. White c ount 13 with a left shift, hematocrit 33, platelets 498,000. This is higher than his baseline of 200 . I have discussed case with Dr. Juanpablo Grady, his surgeon at [place]. ASSESSMENT/PLAN: A 43-year-old gentleman who presents with encephalopathy and concerning abdominal e xam in the setting of recent prolonged hospitalization with 3 surgeries. 1. Encephalopathy. I believe this is secondary to his underlying medical illness. That said, he pr obably warrants imaging of his head. For today, I am going to perform a noncontrast CT scan. Ultima tely, it may be reasonable to get an MRI. 2. Question peritonitis. The patient has distended abdomen with absent bowel sounds. He does not a ppear to have rebound or guarding. He is not tachycardic but he does have an anion gap acidosis. I have ordered a stat CAT scan. Dr. Grady is his surgeon who can see him tomorrow. If is a surgic al emergency on the CT scan, will have the on-call surgeon see him. I have started antibiotics in e form of vancomycin/Zosyn for nosocomial coverage. He will be nothing by mouth. 3. Question sepsis. The patient has leukocytosis and a source of fever. Venous lactate is pending. I will give him intravenous fluids at 200 an hour. He received intravenous fluids also in oncology clinic. I have drawn blood cultures. 4. Appendiceal cancer. The patient chemotherapy in about a month, complicated by his celso kristine and its prolonged postoperative course. This is certainly on hold for the time being. 5. Prophylaxis. Pharmacologic prophylaxis indicated, but he may need a surgical procedure. Will ho ld. 6. Disposition. Inpatient status. 45 minutes critical care time on this patient. /[id number]/MODL
[2018-03-02] MEDS: VANCOMYCIN 1 GM in NS 250 ML IV SCH (18:28)
[2018-03-02] MEDS ORDERED: IOPAMIDOL (ISOVUE-300) 100 ML BTL ONE (18:47)
--- NOTE | 2018-03-02 18:59 | PDMN ---
Medical Necessity Medical necessity: C/M review: Patient meets INPT criteria under MCG M-370 Vomiting, M-160 Sepsis and Other Febrile Illness, without Focal Infection, Gastroenterology GRG (Peritonitis): Acute and persistent encephalopathy likely secondary to underlying medical illness, question peritonitis - distended abdomen with absent bowel sounds, anion gap acidosis, bicarb 18, question sepsis, WBC 13 with a left shift requiring planned 03/02/[address] and abdomen / pelvis CT, General Surgery consult 03/03/2018, ongoing NPO, IV Zosyn Q 6 hrs., IV Vancomycin Q 12 hrs., IV NS 200ml/ hr. infusion, comorbid patient presented as a sick call to [facility] where they were unable to control patient's nausea / vomiting just prior to this admission, history or appendiceal cancer diagnosis 09/2017, debulking surgery the 11/2017 hospitalization for nausea and decreased appetite, recent debulking surgery at [facility] in [place] complicated by an incidental colostomy and two subsequent surgeries, patient discharged 02/06/2018 with a wound VAC, TPN and IV antibiotics via a PICC line, patient had some confusion since that time with acute worsening overnight 03/01/2018 to 03/02/2018. anticipates > 2 MN LOS for ongoing med nec for ongoing eval and TX of above.
[2018-03-02] MEDS: HYDROmorphone HCL/NS 0.5 MG/ML SYR IVP PRN (20:27)
[2018-03-02] MEDS: LORazepam 2 MG/ML INJ IVP PRN (20:42)
[2018-03-02 21:16] LABS: INR 1.07 (0.83-1.16); PROTIME(PATIENT) 14.1 SEC (12.0-15.0)
--- NOTE | 2018-03-02 22:20 | SOAPPROG ---
SOAP Progress Note Assessment/Plan: Assessment/Plan: Asked to see Mr Obrien prior to formal consultation by Dr Albarran in the morning Mr Obrien has a rather complicated hx of stage IV appendiceal cancer. Recent treatment by Dr Powers with high temp ? intraperitoneal chemotherapy. That encounter was complicated by intestinal injury intraoperatively and pt has been on TPN with wound vac since then. Has had transfusion of blood and iron in the last week for anemia. Ate a cheese burger yesterday and then began vomiting. Has been delirious per spouse. Copious vomiting ?3L per pt and spouse . CT shows gastric and proximal sb dilation. Normal BM yesterday per pt. Diarrhea over past 12-24 hrs AA&O Sclera mild icterus Port site c/d Abd vac in place no peritoneal sign WBC elevated (unsure of meds ? post chemo). CT reviewed personally agree with findings Ileus versus post chemo/sepsis inflammation versus obstruction Supportive care TPN when appropriate SBFT if no resolution in 24-48 hr Family discussion held all questions addressed 03/02/18 22:10 Objective: Vital Signs Temp Pulse Resp BP Pulse Ox 36.4 C 118 H 18 127/78 H 91 L 03/02/18 21:09 03/02/18 21:09 03/02/18 21:09 03/02/18 21:09 03/02/18 21:09 03/01/18 03/02/18 03/03/18 05:59 05:59 05:59 Intake Total 800 Balance 800 PT 14.1 SEC (12.0-15.0) 03/02/18 21:00 INR 1.07 (0.83-1.16) 03/02/18 21:00 ICD10 Worksheet Patient Problems: Problems Problem Status Onset Malignant ascites Acute
[2018-03-02] MEDS: NS 1,000 ML IV SCH (22:27)
[2018-03-02] MEDS ORDERED: ALTEPLASE 2 MG VIAL IVP PRN (23:53)
[2018-03-03] MEDS: PROMETHAZINE HCL 25 MG/ML INJ IVP PRN ×2 (00:35→06:35)
[2018-03-03] MEDS: PIPERACILLIN/TAZO 3.375 GM/DEX 50 ML IV SCH ×2 (00:36→05:35)
[2018-03-03] MEDS: HYDROmorphone HCL/NS 0.5 MG/ML SYR IVP PRN ×2 (02:02→06:23)
[2018-03-03] MEDS: LORazepam 2 MG/ML INJ IVP PRN (02:08)
[2018-03-03] MEDS: NS 1,000 ML IV SCH (04:11)
[2018-03-03 06:00] LABS: PLATELET COUNT 401 10^3/uL (150-400)
[2018-03-03] MEDS: VANCOMYCIN 1 GM in NS 250 ML IV SCH (06:21)
--- NOTE | 2018-03-03 08:42 | SOAPPROG ---
SOAP Progress Note Assessment/Plan: Assessment: Plan: Subjective: hospital day 2 vomiting. abd feels normal size to pt. no flatus nor stool sice admit- although bm and isarrhea yesterday prior to admit. pt well known to me from initial presentation with carcinomatosis and omental caking from perforated appendiceal carcinoma, now s/p chemotherapy and debulking surgery, laparotomy x 2 or 3 in [place], home 1 week, increasing his diet until recent set back pe: abd firm but not particularly distended. ct reviewed- stomach was full. abdooinal musculature is close- no significant fascial dehiscence- not an issue. access: sbo versus enteritis- will follow today for improvement. an gn is a reasonable maneuver, but multiple attepts last pm were unsuccesful. pt had an ng while in [place]- so there is no majjor anantomic reason on can't be placed if necessary. would maintain sips and chips or npo until this lack of output resolves. would obvioiusly be very patinet. a reexploration would be at tremendous risk of bowel injury, fistula formation, wound complications, etc. Objective: Vital Signs Temp Pulse Resp BP Pulse Ox 36.5 C 94 14 131/92 H 98 03/03/18 04:00 03/03/18 04:00 03/03/18 04:00 03/03/18 04:00 03/03/18 04:00 Laboratory Results 03/03/18 05:40 03/03/18 05:40 03/02/18 03/03/18 03/04/18 05:59 05:59 05:59 Intake Total 2850 Output Total 1450 Balance 1400 PT 14.1 SEC (12.0-15.0) 03/02/18 21:00 INR 1.07 (0.83-1.16) 03/02/18 21:00 ICD10 Worksheet Patient Problems: Problems Problem Status Onset Malignant ascites Acute
[2018-03-03] MEDS ORDERED: diphenhydrAMINE 25 MG CAP PO PRN (09:00)
[2018-03-03] MEDS ORDERED: D10W 1,000 ML IV PRN (09:01)
[2018-03-03] MEDS: METOPROLOL TARTRATE 25 MG TAB PO SCH ×2 (09:40→21:37)
[2018-03-03] MEDS: ERTAPENEM 1 GM VIAL IV SCH (09:40)
[2018-03-03] MEDS: ESCITALOPRAM OXALATE 10 MG TAB PO SCH (11:33)
[2018-03-03] MEDS: HYDROmorphONE/DILAUDID 4 MG TAB PO SCH ×4 (11:33→21:39)
[2018-03-03] MEDS: LORazepam 0.5 MG TAB PO SCH (11:33)
--- NOTE | 2018-03-03 12:48 | GCON ---
[f rep st] CONSULTATION INFECTIOUS DISEASE CONSULTATION. 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 HISTORY OF PRESENT ILLNESS: Please note that the history was obtained from the patient, but mostly from his , given that the patient is confused. The patient has been admitted for the past month at [facility], and unfortunately they are not on the [facility] system. I was able to call their microbiology lab ([phone]), but, at the time I am dictating this, I am waiting for a call back from [facility], Dr. Rodrick Michelle, whom they have seen while he was hospitalized ([phone]). 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 His oncologist is Dr. Lazaro. Regarding his present issues, the patient's tells me that he underwent chemotherapy. The patient was admitted to [facility] from January 19, 2018 through February 16, 2018 for debulking surgery by Dr. Kofi Powers. Unfortunately, from what the patient's tells me, this was complicated by a small bowel enterotomy. She states that the patient developed a temperature as high as 104 and did not feel well postoperatively. The patient required 2 exploratory laparotomies after that, and was ultimately discharged on February 16 on ertapenem, with an unknown stop date. He is followed by Dr. Rodrick Michelle of [facility]. Of note, I did call the microbiology lab as outlined above. The patient's blood cultures were negative, but abdominal fluid obtained on January 28 grew Klebsiella pneumoniae sensitive to piperacillin , tazobactam, levofloxacin, ertapenem, and strep anginosus. He also grew Radha albicans, no susceptibilities were performed. Regarding his present issues, the patient's states that he went home on February 16, and really has been not doing much at home, as he has continued to feel unwell and very tired. She states that yesterday, early in the morning, he developed abrupt onset nausea, vomiting and diarrhea and was "losing it from both ends." She states that this is in spite of Dilaudid every 4 hours. Because of this, they brought him to [facility] on March 02. The patient was found to be afebrile, but was admitted to the floor for further evaluation and treatment. His ertapenem was restarted as was vancomycin. Today, the patient states he is still having diarrhea, profuse and watery, but the vomiting has gotten much better. He denies fevers at home, rigors, shortness of breath. His abdominal pain is the usual, approximately a 3. No skin rash or other. The patient does have 2 children at home, his 2 sons, ages 12 and 9, but they have been well. His says that she had a GI illness perhaps 2 weeks ago, but has otherwise been well. PAST MEDICAL HISTORY: As outlined above. MEDICATIONS: Presently include ertapenem 1 g IV daily, vancomycin 1 g IV q.12 hours. The patient did get a dose of Zosyn. Other medications include Tylenol , Lexapro 10 mg daily, Dilaudid, Ativan, Lopressor 50 mg p.o. twice daily, Zofran and Seroquel. ALLERGIES: No known drug allergies. SOCIAL HISTORY: The patient has a very supportive and 2 sons, ages 12 and 9. They live in [place]. He has a history of smoking, but he quit when he was diagnosed with cancer. Occasional medical marijuana. He previously worked in the [employer] business. He has 1 dog who has been healthy. No recent travel. FAMILY HISTORY: Unremarkable. PHYSICAL EXAM: VITAL SIGNS: T current is 36.4, T-max is 36.7, heart rate is 92 , blood pressure 131/92, 98% on 2 L. GENERAL: Chronically ill-appearing male lying in bed, no apparent distress. He is somewhat confused. HEENT: Atraumatic, normocephalic. Pupils equal, round , reactive to light. Extraocular movements are intact. No conjunctival injection or icterus. He has temporal wasting and is cachectic. Mucous membranes are moist. He does have minimal thrush of his buccal mucosa bilaterally. No other oral lesions noted. CARDIOVASCULAR: S1, S2. No rubs, gallops, or murmurs. The patient has a port in his left upper chest, which is without tenderness or erythema. LUNGS: No increased respiratory effort. Clear to auscultation bilaterally. No rales, rhonchi, or wheeze. Abdomen: The patient has a wound VAC in place centrally without peripheral erythema or significant tenderness. Hyperactive bowel sounds. EXTREMITIES: No clubbing, cyanosis, or edema. The patient has a PICC line in his right arm that is without tenderness or swelling. Skin: Warm and dry. No rashes. LABORATORY DATA: Microbiology: Blood cultures x2 are pending. GI pathogen panel is pending. White blood cell count of 9.5 down from 12 on admission, hematocrit 28, platelet count of 401, 83% neutrophils. BUN and creatinine 17/ 0.5. AST 26, ALT 43, alkaline phosphatase 208. RADIOGRAPHIC DATA: CT scan of the abdomen and pelvis performed yesterday, which is compared to November 2017, shows a 2 x 13.7 cm rim enhancing fluid collection in the left upper quadrant and a probable early or partial SBO. He has a very small pericardial effusion and subtle ground-glass opacities in the right middle lobe. 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 The patient had complications related to his initial surgery there with peritonitis requiring 2 subsequent washouts and antibiotics, although specific details are unknown to me at this time. He has been on Ertapenem since discharge, with an unknown stop date. He is now admitted for abrupt onset nausea, vomiting, and diarrhea concerning for viral gastroenteritis versus C difficile colitis, or other. Of note, CT scan of the abdomen and pelvis done here reveals a fluid collection in his left upper quadrant consistent with probable abscess. This will almost certainly need to be drained. PLAN: 1. Dr. Alcantara has spoken with the patient's surgeon, Dr. Kofi Powers, who agrees with drainage of the abscess here by Interventional Radiology. Will obtain cultures including fungal cultures--orders placed. 2. The patient's ertapenem has been restarted, which we will continue. Hold off on antifungal coverage pending a conversation with [facility]. The patient is clinically stable. 3. For his oral thrush, we will start clotrimazole troches. 4. Discontinue vancomycin intravenously. 5. Stool PCR ordered. The patient is clinically stable. Will hold off on empiric oral vancomycin presently, as clinical suspicion for norovirus versus other viral etiology is high given concomitant vomiting. Thank you very much for consulting Infectious Diseases. We will continue to follow the patient with you. Over 90 minutes was spent with this patient, obtaining information from the , [facility] and other physicians. Addendum: I was able to speak with of Infect[facility] Disease consultants. He was able to review the patient's record, although he had not seen the patient primarily. The patient was noted to have a follow-up appointment scheduled with Dr. Michelle this coming Monday, at which point his antibiotics were likely going to be stopped. He also reported that the patient had received 2 weeks or more of Micafungin while in the hospital. He agreed with continuing antibiotics for now, draining the abscess as we are planning to do, and repeating cultures. He will apprise of the patient's hospital admission. /[id number]/MODL MTDD
--- NOTE | 2018-03-03 12:48 | GCON ---
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 He had some initial chemotherapy and had a good response. He was refer red to Dr. oSto for debulking, and then intravesicular chemotherapy was heated. [place] ago and underwent this surgery. Dr. Soto reported that he had a lot of fibrosis, but it is believed the biopsies all were negative. There was an area of narrowing in the small bowel, so he di d a small bowel resection and then did the intraperitoneal chemotherapy with mitomycin. Several days later, he developed a leak and peritonitis, requiring drains and antibiotics. He was also on TPN fo r awhile. He slowly improved and was able to go home on the and continuing IV antibiotics at [facility]. He also was receiving nighttime TPN. He was in the office a couple times this week with initial ly, some fatigue, but he was in the office yesterday with uncontrolled projectile vomiting. Admitted to the hospital for close evaluation and Dr. Izaguirre, his local surgeon was consulted. I also spok e with Dr. Soto and obtained some of the history from him. He is currently feeling better but CT scan shows a fluid collection. Dr. Hernandez from infectious disease was consulted. PAST MEDICAL HISTORY: No known drug allergies. HOME MEDICATIONS: Included TPN, Seroquel, Lopressor, Invanz, Compazine, Zofran, Ativan, Phenergan, B enadryl, Dilaudid, and Lexapro. CHRONIC ILLNESSES: Include the appendiceal carcinoma as in HPI; otherwise unremarkable. SURGICAL HISTORY: As per HPI;otherwise unremarkable. SOCIAL HISTORY: Drinks alcohol occasionally. He did smoke cigarettes up until his diagnosis. He wo rks in building design. He has a and 2 children. FAMILY HISTORY: Remarkable for an uncle with colon cancer; otherwise family history is negative. REVIEW OF SYSTEMS: A 10-point review of systems performed. Patient is a little bit disoriented. Pe rtinent positives as per HPI; otherwise appear to be negative. PHYSICAL EXAMINATION: VITAL SIGNS: Temperature is 36.4, pulse 92, blood pressure 118/79. GENERAL: No acute distress. Mildly disoriented. His is with him and also provides some history. HEENT : Unremarkable. LUNGS: Clear. CARDIAC: Regular. ABDOMEN: A wound VAC in place. Mildly tender in the right side. It is soft. NEUROLOGIC: Aside from the little disorientation, was nonfocal. LABORATORY DATA: White count 9600, hemoglobin 9.1, platelet count 401,000. Chemistries: Albumin is 2.8, alk phos 208; otherwise normal LFTs. Chemistries are unremarkable. Coag's were normal. CT scan shows a rim-enhancing fluid collection in anterior left upper quadrant, measuring 2 x 13.7 cm , extending laterally from the midline ventral abdominal incision, which appears partially packed. W ound VAC is in place. Small focus of gas deep to the incision and within the collection. IMPRESSION: 1. 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 2. Recent peritonitis post surgery. 3. Recent debulking, bowel resection, and intraperitoneal chemotherapy. 4. Poor nutritional intake through oral and has recently been on TPN. He is relatively stable, and I have spoken with Dr. Hernandez. The plan is to try to drain this fluid co llection. Dr. Soto stated that the way his peritoneal cavity does not reabsorb fluids very well, so it could be benign; but it is reasonable with his recent history of infection to rule that out. Will a lso keep him on antibiotics and continue TPN. We offered to transfer him to [facility], but the prefer red to stay up here since they are very familiar. With both Dr. Ling and Dr. Izaguirre, and will co nsult Dr. Soto as needed. Will follow along with you. I do not expect any problems with his blood cou nts from the chemotherapy last month. /[id number]/MODL
[2018-03-03] MEDS ORDERED: MEPERIDINE 25 MG/ML SYR IVP PRN (13:21)
[2018-03-03] MEDS ORDERED: PROTAMINE SULFATE 50 MG/5 ML VIAL IVP PRN (13:21)
[2018-03-03] MEDS ORDERED: fentaNYL 100 MCG/2 ML INJ IVP PRN (13:21)
[2018-03-03] MEDS ORDERED: GLUCAGON HCL 1 MG VIAL IVP PRN (13:21)
[2018-03-03] MEDS ORDERED: MIDAZOLAM 2 MG/2 ML VIAL IVP PRN (13:21)
[2018-03-03] MEDS ORDERED: NALOXONE HCL 0.4 MG/ML INJ IVP PRN (13:21)
[2018-03-03] MEDS ORDERED: FLUMAZENIL 0.5 MG/5 ML MDV IVP PRN (13:21)
--- NOTE | 2018-03-03 13:30 | ASMTCMCOM ---
CM Note CM Note Notes: Pt admitted to hospital with n/v. Pt has had a complicated medical course from appendiceal ca. Pt was recently discharged from [facility] in [place] with TPN, IV abx, and a wound vac. CM spoke with who is present at bedside,he is current with [facility], his hh RN is Karishma. CM notified both agencies that pt was in hospital. His explained that Karishma was supposed to come yesterday to change dressing but they had to come to hospital, she is concerned dressing hasn't been changed yet. CM notifed RN, she was going to page wound care. DC date unclear, anticipate pt will dc home w/current agency help. DC Plan: [facility] (RN) Date Signed: 03/03/2018 01:29 PM Electronically Signed By:Ann Bright RN
--- NOTE | 2018-03-03 14:23 | PDGENHP ---
History & Physical Chief Complaint: pain History of Present Illness: complex fluid collection in LUQ Relevant Physical Exam: NAD ,focal tenderness LUQ Cardiorespiratory Assessment: RRR, nl Wob
--- NOTE | 2018-03-03 14:23 | PDPROPOC ---
Sedation Plan of Care ASA Classification: ASA 2 Planned drugs: fentanyl, midazolam Mallampati Score: Class 1 Mallampati Reference Image:
--- NOTE | 2018-03-03 15:16 | PDRADPN ---
Radiology Procedure Note Date of Procedure: 03/03/18 Radiologist: Adriano Zamora Anesthesia: IV Sedation Pre-op Diagnosis: LUQ peritoneal abscess Post-op Diagnosis: same Indication: control infection Procedure: US/fluoro guided access with placement of 10F APD centrally Finding(s): purulent fluid aspirated, irrigated cavity and placed to JAYY bulb. Inf/Abcess present in the surg proc area at time of surgery?: Yes Depth: Organ Space EBL: Minimal Complications: none Specimen(s): 5mL purulent fluid submitted for cx
[2018-03-03] MEDS: CLOTRIMAZOLE 10 MG TROCHE PO SCH ×3 (16:24→21:38)
[2018-03-03 16:29] LABS: INR 1.14 (0.83-1.16); PROTIME(PATIENT) 14.8 SEC (12.0-15.0)
--- NOTE | 2018-03-03 16:49 | HOSPPROG ---
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 -s/p intra-peritoneal "hot" chemo with favorable f/u path * s/p debulking surgery/SB resection complicated by anastomotic leak * Peritonitis - on home IV abx - IV invanz * Metabolic encephalopathy * Severe protein calorie malnutrition -continue TPN * Partial SBO -advancing diet * Wound dehiscence -wound vac Subjective: No more N/V Objective: Vital Signs Temp Pulse Resp BP Pulse Ox 36.6 C 84 16 134/93 H 95 03/03/18 16:12 03/03/18 16:12 03/03/18 16:12 03/03/18 16:12 03/03/18 16:12 Microbiology 03/03/18 11:15 Gastrointestinal Tract Panel (PCR) - Final Stool Rotavirus A Laboratory Results 03/03/18 05:40 03/03/18 05:40 03/02/18 03/03/18 03/04/18 05:59 05:59 05:59 Intake Total 2850 200 Output Total 1450 10 Balance 1400 190 PT 14.8 SEC (12.0-15.0) 03/03/18 16:08 INR 1.14 (0.83-1.16) 03/03/18 16:08 case discussed at length with Dr. Hernandez and Dr. Alcantara regarding historical course CT abd - rim enhancing abd abscess - Physical Exam Constitutional: no apparent distress, appears nourished, not in pain Cardiovascular: regular rate and rhythym, no murmur, rub, or gallop Respiratory: no respiratory distress, no rales or rhonchi, clear to auscultation Gastrointestinal: normoactive bowel sounds, soft, non-tender abdomen, no palpable masses Skin: no rashes or abrasions, no fluctuance, no induration Neurologic: AAOx3, sensation intact bilaterally Psychiatric: interacting appropriately, not anxious, not encephalopathic, thought process linear ICD10 Worksheet Patient Problems: Problems Problem Status Onset Malignant ascites Acute
[2018-03-03] MEDS: TPN 1 EA BAG IV SCH (21:32)
[2018-03-03] MEDS: QUEtiapine FUMARATE 50 MG TAB PO SCH (21:37)
[2018-03-04] MEDS: HYDROmorphONE/DILAUDID 4 MG TAB PO SCH ×6 (01:56→22:10)
[2018-03-04] MEDS: CLOTRIMAZOLE 10 MG TROCHE PO SCH ×5 (05:30→22:09)
[2018-03-04 06:03] LABS: PLATELET COUNT 377 10^3/uL (150-400)
[2018-03-04 06:11] LABS: INR 1.07 (0.83-1.16); PROTIME(PATIENT) 14.1 SEC (12.0-15.0)
[2018-03-04] MEDS: METOPROLOL TARTRATE 25 MG TAB PO SCH ×2 (09:55→22:09)
[2018-03-04] MEDS: ERTAPENEM 1 GM VIAL IV SCH (10:26)
--- NOTE | 2018-03-04 11:49 | SOAPPROG ---
SOAP Progress Note Assessment/Plan: E&M for appendix cancer * Poorly-diff, signet ring adeno of appendix: s/p FOLFOX then debulking with HiVEC (mitomyocin) by Dr. Powers end of January. No residual disease. Further therapy on hold until recovered. * Recent bowel leak from small bowel resection with peritonitis after above surgery: drains in place and on abx. appreciate ID input. * Poor nutritional intake: stable on TPN Subjective: Much more awake and alert. No n/v and feeling better. Pain is better. with patient. Objective: Vital Signs Temp Pulse Resp BP Pulse Ox 36.7 C 98 15 94/72 L 90 L 03/04/18 11:42 03/04/18 11:42 03/04/18 11:42 03/04/18 11:42 03/04/18 11:42 Microbiology 03/03/18 12:01 Gram Stain - Final Abdomen - Other 03/03/18 11:15 Gastrointestinal Tract Panel (PCR) - Final Stool Rotavirus A Laboratory Results 03/04/18 05:45 03/04/18 05:45 03/03/18 03/04/18 03/05/18 05:59 05:59 05:59 Intake Total 2850 3659 Output Total 1450 930 Balance 1400 2729 PT 14.1 SEC (12.0-15.0) 03/04/18 05:45 INR 1.07 (0.83-1.16) 03/04/18 05:45 Laboratory Tests 03/03/18 03/03/18 03/04/18 05:40 05:40 05:45 WBC 9.59 H 8.45 Hgb 9.1 L 8.5 L Plt Count 401 H 377 Alkaline Phosphatase 208 H 03/04/18 05:45 WBC Hgb Plt Count Alkaline Phosphatase 204 H Physical Exam - Physical Exam General Appearance: no apparent distress Respiratory: lungs clear Cardiac/Chest: regular rate, rhythm Abdomen: normal bowel sounds, non-tender, soft, other (wound VAC midline; separate drain on left) ICD10 Worksheet Patient Problems: Problems Problem Status Onset Malignant ascites Acute
[2018-03-04] MEDS: LORazepam 0.5 MG TAB PO SCH (12:17)
[2018-03-04] MEDS: ESCITALOPRAM OXALATE 10 MG TAB PO SCH (12:17)
--- NOTE | 2018-03-04 12:58 | PCMIDPN ---
Assessment/Plan: 1. Rotavirus gastroenteritis: The vomiting has stopped. Diarrhea is also slowing down. All of their questions were answered today. He understands the importance of using his own bathroom moving forward, and meticulous hand washing. He understands that he could shed this virus for several weeks moving forward. 2. History of peritonitis secondary to anastomotic leak status post multiple washouts with wound VAC placement at [facility]: The patient was found to have a new collection in his left upper quadrant that was tapped by interventional radiologist yesterday; cultures are pending. Continue ertapenem for now pending culture results. Upon discharge, he will follow up with [facility], as there working closely with Dr. Powers , the patient's primary surgeon. 3. Mild oral candidiasis: Continue clotrimazole troches. 03/04/18 12:58 Subjective: Much better today! Vomiting has stopped, and diarrhea is slowing down. Sitting up eating lunch, with and his parents in the room. Long conversation with patient and his regarding hand hygiene with rotavirus, etc. All questions were answered. Drain placed in left upper quadrant yesterday by Interventional Radiology; 5 cc of pus removed. Objective: Vital Signs Ertapenem 1 g IV daily Afebrile Temp Pulse Resp BP Pulse Ox 36.7 C 98 15 94/72 L 90 L 03/04/18 11:42 03/04/18 11:42 03/04/18 11:42 03/04/18 11:42 03/04/18 11:42 Microbiology 03/03/18 12:01 Gram Stain - Final Abdomen - Other 03/03/18 11:15 Gastrointestinal Tract Panel (PCR) - Final Stool Rotavirus A Laboratory Results 03/04/18 05:45 03/04/18 05:45 03/03/18 03/04/18 03/05/18 05:59 05:59 05:59 Intake Total 2850 3659 Output Total 1450 930 Balance 1400 2729 Abdominal abscess Gram stain: 4+ polys no organisms, culture pending Fungal culture pending Stool positive for rotavirus a - Physical Exam General Appearance: alert, no apparent distress EENT: pharynx normal, thrush Respiratory: lungs clear Cardiac/Chest: regular rate, rhythm Extremities: other (PICC line right upper extremity looks fine) Abdomen: other (Wound VAC in place midline with no surrounding erythema. Drain in the left upper quadrant with a few cc of serous fluid) Skin: No rash ICD10 Worksheet Patient Problems: Problems Problem Status Onset Malignant ascites Acute
--- NOTE | 2018-03-04 14:15 | HOSPPROG ---
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 No N/V. Still diarrhea Objective: Vital Signs Temp Pulse Resp BP Pulse Ox 36.7 C 98 15 94/72 L 90 L 03/04/18 11:42 03/04/18 11:42 03/04/18 11:42 03/04/18 11:42 03/04/18 11:42 Microbiology 03/03/18 12:01 Gram Stain - Final Abdomen - Other 03/03/18 11:15 Gastrointestinal Tract Panel (PCR) - Final Stool Rotavirus A Laboratory Results 03/04/18 05:45 03/04/18 05:45 03/03/18 03/04/18 03/05/18 05:59 05:59 05:59 Intake Total 2850 3659 Output Total 1450 930 Balance 1400 2729 PT 14.1 SEC (12.0-15.0) 03/04/18 05:45 INR 1.07 (0.83-1.16) 03/04/18 05:45 - Physical Exam Constitutional: no apparent distress, appears nourished, not in pain Cardiovascular: regular rate and rhythym, no murmur, rub, or gallop Respiratory: no respiratory distress, no rales or rhonchi, clear to auscultation Gastrointestinal: normoactive bowel sounds, soft, non-tender abdomen, no palpable masses Skin: no rashes or abrasions, no fluctuance, no induration Neurologic: AAOx3, sensation intact bilaterally Psychiatric: interacting appropriately, not anxious, not encephalopathic, thought process linear ICD10 Worksheet Patient Problems: Problems Problem Status Onset Malignant ascites Acute
[2018-03-04] MEDS: TPN 1 EA BAG IV SCH (21:59)
[2018-03-04] MEDS: QUEtiapine FUMARATE 50 MG TAB PO SCH (22:11)
[2018-03-05] MEDS: HYDROmorphONE/DILAUDID 4 MG TAB PO SCH ×6 (04:58→22:09)
[2018-03-05] MEDS: CLOTRIMAZOLE 10 MG TROCHE PO SCH ×5 (05:46→22:08)
[2018-03-05 05:57] LABS: PLATELET COUNT 358 10^3/uL (150-400)
[2018-03-05 06:01] LABS: INR 1.18 (0.83-1.16); PROTIME(PATIENT) 15.2 SEC (12.0-15.0)
[2018-03-05] MEDS ORDERED: LIDOCAINE 1% 300 MG/30 ML SDV ONE (08:02)
[2018-03-05] MEDS ORDERED: IOPAMIDOL (ISOVUE-300) 100 ML BTL ONE (08:05)
--- NOTE | 2018-03-05 08:22 | SOAPPROG ---
SOAP Progress Note Assessment/Plan: Assessment: Plan: Subjective: feeling better, tolerating diet, having bowel movements. Objective: no surgical issues. will sign off. Vital Signs Temp Pulse Resp BP Pulse Ox 36.6 C 101 H 16 128/79 H 90 L 03/05/18 08:00 03/05/18 08:00 03/05/18 08:00 03/05/18 08:00 03/05/18 08:00 Microbiology 03/03/18 12:01 Gram Stain - Final Abdomen - Other Laboratory Results 03/05/18 05:30 03/05/18 05:30 03/04/18 03/05/18 03/06/18 05:59 05:59 05:59 Intake Total 3659 2443 350 Output Total 930 900 375 Balance 2729 1543 -25 PT 15.2 SEC (12.0-15.0) H 03/05/18 05:30 INR 1.18 (0.83-1.16) H 03/05/18 05:30 ICD10 Worksheet Patient Problems: Problems Problem Status Onset Malignant ascites Acute
[2018-03-05] MEDS ORDERED: MAGNESIUM SULF 1 GM/DEXTROSE 100 ML IV ONE ×2 (09:00→15:45)
[2018-03-05] MEDS ORDERED: NS 1,000 ML IV SCH (09:45)
[2018-03-05] MEDS: METOPROLOL TARTRATE 25 MG TAB PO SCH ×2 (10:27→22:07)
[2018-03-05] MEDS: ERTAPENEM 1 GM VIAL IV SCH (10:28)
--- NOTE | 2018-03-05 10:30 | PCMIDPN ---
Assessment/Plan: Assessment/Plan: * Rotavirus gastroenteritis: Clinically improved with resolution of nausea and vomiting. Continue contact precautions. * Intra-abdominal abscess status post percutaneous drainage: Radiographic findings most consistent with abscess. Cultures are no growth to date. Plan to continue ertapenem. Call out to treating infectious disease physician in [place] to coordinate care post discharge. Suspect he will need to stay on ertapenem given this finding for at least 10 days. Continue to monitor culture data as available. * Oral thrush: Resolved. Continue clotrimazole troches. 03/05/18 10:27 Subjective: No further nausea or vomiting. Patient now complains of constipation. No significant abdominal pain. Objective: Vital Signs Temp Pulse Resp BP Pulse Ox 36.6 C 101 H 16 128/79 H 90 L 03/05/18 08:00 03/05/18 08:00 03/05/18 08:00 03/05/18 08:00 03/05/18 08:00 Microbiology 03/03/18 12:01 Gram Stain - Final Abdomen - Other Laboratory Results 03/05/18 05:30 03/05/18 05:30 03/04/18 03/05/18 03/06/18 05:59 05:59 05:59 Intake Total 3659 2443 350 Output Total 930 900 375 Balance 2729 1543 -25 Ertapenem # 3 Fluid collection 4+ white blood cells, Gram stain negative, culture pending Stool PCR testing positive for rotavirus - Physical Exam General Appearance: alert, no apparent distress EENT: No scleral icterus, No thrush Respiratory: lungs clear, No respiratory distress Cardiac/Chest: regular rate, rhythm Abdomen: non-tender, other (Midline wound VAC in place; JAYY with serosanguineous output), No distended Skin: No rash - Line/s RUE PICC Lines: No drainage, No erythema ICD10 Worksheet Patient Problems: Problems Problem Status Onset Malignant ascites Acute
--- NOTE | 2018-03-05 10:35 | PDIAF ---
- Diagnosis Diagnosis: Abdominal abscess Code Status: Full Code - Medication Management Discharge Medications: Medications to Continue on Transfer Escitalopram Oxalate [Lexapro 10 MG] 10 mg PO DAILY@1130 11/23/17 [Last Taken ] LORazepam [Ativan (*)] 0.5 mg PO DAILY@1130 11/23/17 [Last Taken Unknown] Prochlorperazine Maleate [Compazine 10mg (*)] 10 mg PO Q6 PRN 11/23/17 [Last Taken Unknown] diphenhydrAMINE [Benadryl 25 MG (*)] 25 - 50 mg PO HS PRN 11/23/17 [Last Taken Unknown] TPN [Hyperalimentation] 1 ea IV DAILY21 bag 11/30/17 [Last Taken 02/28/18] Ondansetron HCl [Zofran] 4 mg PO BID PRN 03/01/18 [Last Taken 02/27/18] Ertapenem [Invanz] 1 gm IV DAILY 03/02/18 [Last Taken 03/02/18] HYDROmorphone HCL [Dilaudid 4 mg (*)] 4 mg PO Q4 03/02/18 [Last Taken Unknown] Metoprolol Tartrate [Lopressor 25 mg (*)] 50 mg PO BID 03/02/18 [Last Taken Unknown] Promethazine HCl [Phenergan 25mg (*)] 25 mg PO BID PRN 03/02/18 [Last Taken Unknown] QUEtiapine FUMARATE [Seroquel 50 mg (*)] 50 mg PO HS 03/02/18 [Last Taken Unknown] Storyboard Artist Antibiotics: Ertapenem 1 g IV daily [facility] Antibiotic Stop Date: 03/13/18 Discharge Medications: Refer to the Discharge Home Medication list for PRN reason. PICC Care - Routine: Yes - Labs/Radiology CBC w/diff Date: 03/08/18 CMP Date: 03/08/18 Call or Fax Lab and Imaging Results to: Dr. Rodrick Michelle, - Follow Up Care Current Providers and Referrals: Patient,NotPresent [Primary Care Provider] -
--- NOTE | 2018-03-05 11:52 | WOCRNPDOC ---
WOCRN Advanced Assessment Note - Skin Integrity Problem, Advanced Assess Medial Abdomen Surgical Wound/Incision Dressing Type: Black Vac Foam (x1), Wound Vac Dressing Description: Clean/Dry, Intact Exudate Amount: Scant Exudate Characteristic(s): Sanguinous Integumentary Issue Intervention: Dressing Changed Wound Bed Constitution: Granulation Tissue (90%), Adhered Slough (10%) Wound Edges: Epithelizing Site Measurement - Head-to-Toe Length X Width X Depth (cm): 16.2x1.9x1.3 Skin Integrity Problem Comment: Wound healing well as evidenced by extensive kenny wound epithelization and mostlly healthy wound bed granulation. Used 5 ml of liquid lidocaine per patient request, but he likely did not need it. Wound vac can probably be D/C'd in the next week. Cleaned with ns. Skin prep and drape applied kenny wound. Small black foam simplace to wound bed with a trac landing pad of foam over it. Vac restarted at -125 mm Hg continuous suction with no leaks. Next vac change due Monday. Patient's in room for care.
[2018-03-05] MEDS: LORazepam 0.5 MG TAB PO SCH (12:50)
[2018-03-05] MEDS: ESCITALOPRAM OXALATE 10 MG TAB PO SCH (12:51)
[2018-03-05] MEDS: POTASSIUM Cl (KCl) 10 MEQ in NS 100 ML IV SCH ×3 (12:51→17:26)
--- NOTE | 2018-03-05 16:44 | SOAPPROG ---
SOAP Progress Note Assessment/Plan: Assessment: LUQ peritoneal collection draining well. Favor he maintains this drain as outpatient until 03/09. If output at that time is <10cc/24hrs, we will see him and remove it. Plan: drain check and possible pull in radiology as outpatient around 03/09 if output becomes scant 03/05/18 16:41 03/05/18 16:46 Subjective: day 2 post LUQ drain for complex collection. feeling well. no active pain. Objective: Vital Signs Temp Pulse Resp BP Pulse Ox 36.4 C 100 18 131/90 H 92 03/05/18 16:00 03/05/18 16:00 03/05/18 16:00 03/05/18 16:00 03/05/18 16:00 Microbiology 03/03/18 12:01 Gram Stain - Final Abdomen - Other Laboratory Results 03/05/18 05:30 03/05/18 05:30 03/04/18 03/05/18 03/06/18 05:59 05:59 05:59 Intake Total 3659 2443 940 Output Total 930 900 375 Balance 2729 1543 565 PT 15.2 SEC (12.0-15.0) H 03/05/18 05:30 INR 1.18 (0.83-1.16) H 03/05/18 05:30 10F APD in LUQ draining cloudy serous fluid. I reviewed the gram stain result and preliminary microbio data (no growth to date, no organisms). Drain output recorded. Dressing is CDI. ICD10 Worksheet Patient Problems: Problems Problem Status Onset Malignant ascites Acute
--- NOTE | 2018-03-05 18:05 | HOSPPROG ---
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 Subjective: Eating well, no N/V Objective: Vital Signs Temp Pulse Resp BP Pulse Ox 36.4 C 100 18 131/90 H 92 03/05/18 16:00 03/05/18 16:00 03/05/18 16:00 03/05/18 16:00 03/05/18 16:00 Microbiology 03/03/18 12:01 Gram Stain - Final Abdomen - Other Laboratory Results 03/05/18 05:30 03/05/18 05:30 03/04/18 03/05/18 03/06/18 05:59 05:59 05:59 Intake Total 3659 2443 940 Output Total 930 900 375 Balance 2729 1543 565 PT 15.2 SEC (12.0-15.0) H 03/05/18 05:30 INR 1.18 (0.83-1.16) H 03/05/18 05:30 - Physical Exam Constitutional: no apparent distress, appears nourished, not in pain Cardiovascular: regular rate and rhythym, no murmur, rub, or gallop Respiratory: no respiratory distress, no rales or rhonchi, clear to auscultation Gastrointestinal: normoactive bowel sounds, soft, non-tender abdomen, no palpable masses Skin: no rashes or abrasions, no fluctuance, no induration Neurologic: AAOx3, sensation intact bilaterally Psychiatric: interacting appropriately, not anxious, not encephalopathic, thought process linear ICD10 Worksheet Patient Problems: Problems Problem Status Onset Malignant ascites Acute
[2018-03-05] MEDS: QUEtiapine FUMARATE 50 MG TAB PO SCH (22:08)
[2018-03-05] MEDS: TPN 1 EA BAG IV SCH (22:09)
[2018-03-06] MEDS: HYDROmorphONE/DILAUDID 4 MG TAB PO SCH ×4 (02:00→15:34)
[2018-03-06 02:41] LABS: PLATELET COUNT 337 10^3/uL (150-400)
[2018-03-06 02:50] LABS: INR 1.13 (0.83-1.16); PROTIME(PATIENT) 14.7 SEC (12.0-15.0)
[2018-03-06] MEDS: CLOTRIMAZOLE 10 MG TROCHE PO SCH ×3 (06:35→15:35)
[2018-03-06] MEDS: ERTAPENEM 1 GM VIAL IV SCH (10:08)
[2018-03-06] MEDS: METOPROLOL TARTRATE 25 MG TAB PO SCH (10:08)
[2018-03-06] MEDS ORDERED: NS 250 ML IV ONE (11:37)
[2018-03-06] MEDS: ESCITALOPRAM OXALATE 10 MG TAB PO SCH (11:56)
[2018-03-06] MEDS: LORazepam 0.5 MG TAB PO SCH (11:56)
[2018-03-06 12:00] VITALS: BP 110/76
--- NOTE | 2018-03-06 13:14 | HOSPPROG ---
Hospitalist Progress Note Assessment/Plan: #Rotavirus: having formed stools #Tachycardia: due to low PO intake. Bolus IVFs #Abdominal abscess/peritonitis#: IR placed drain. Remove 03/09 -IV Invanz. 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 No palps or racing heart Objective: Vital Signs Temp Pulse Resp BP Pulse Ox 36.7 C 104 H 16 110/76 91 L 03/06/18 11:59 03/06/18 11:59 03/06/18 11:59 03/06/18 11:59 03/06/18 11:59 Microbiology 03/03/18 12:01 Gram Stain - Final Abdomen - Other Laboratory Results 03/06/18 02:20 03/06/18 02:20 03/05/18 03/06/18 03/07/18 05:59 05:59 05:59 Intake Total 2443 3813 Output Total 900 2395 Balance 1543 1418 PT 14.7 SEC (12.0-15.0) 03/06/18 02:20 INR 1.13 (0.83-1.16) 03/06/18 02:20 - Physical Exam Constitutional: no apparent distress Eyes: PERRL Ears, Nose, Mouth, Throat: moist mucous membranes Cardiovascular: tachycardia Respiratory: no respiratory distress, no rales or rhonchi Gastrointestinal: normoactive bowel sounds, other (wound vac in place. Abd drain with min drainage) Genitourinary: no bladder fullness Skin: warm Musculoskeletal: full muscle strength Neurologic: AAOx3, CN II-XII Intact Psychiatric: interacting appropriately ICD10 Worksheet Patient Problems: Problems Problem Status Onset Malignant ascites Acute
--- NOTE | 2018-03-06 14:21 | PDIAF ---
- Diagnosis Diagnosis: Abdominal abscess Code Status: Full Code - Medication Management Discharge Medications: Medications to Continue on Transfer Escitalopram Oxalate [Lexapro 10 MG] 10 mg PO DAILY@1130 11/23/17 [Last Taken ] LORazepam [Ativan (*)] 0.5 mg PO DAILY@1130 11/23/17 [Last Taken Unknown] Prochlorperazine Maleate [Compazine 10mg (*)] 10 mg PO Q6 PRN 11/23/17 [Last Taken Unknown] diphenhydrAMINE [Benadryl 25 MG (*)] 25 - 50 mg PO HS PRN 11/23/17 [Last Taken Unknown] TPN [Hyperalimentation] 1 ea IV DAILY21 bag 11/30/17 [Last Taken 02/28/18] Ondansetron HCl [Zofran] 4 mg PO BID PRN 03/01/18 [Last Taken 02/27/18] HYDROmorphone HCL [Dilaudid 4 mg (*)] 4 mg PO Q4 03/02/18 [Last Taken Unknown] Promethazine HCl [Phenergan 25mg (*)] 25 mg PO BID PRN 03/02/18 [Last Taken Unknown] QUEtiapine FUMARATE [Seroquel 50 mg (*)] 50 mg PO HS 03/02/18 [Last Taken Unknown] Clotrimazole [Mycelex (*)] 10 mg PO 5XD #15 ronny 03/06/18 [Last Taken Unknown] Ertapenem [INVanz] 1 gm IV DAILY #0 03/06/18 [Last Taken 03/02/18] Lidocaine HCl [Lidocaine HCl 4% Topical Soln (*)] 10 ml MM MWF #150 ml 03/06/18 [Last Taken Unknown] Metoprolol Tartrate [Lopressor 25 mg (*)] 50 mg PO BID #120 tab 03/06/18 [Last Taken Unknown] Alf Antibiotics: Ertapenem 1 g IV daily [facility] Antibiotic Stop Date: 03/13/18 Discharge Medications: Refer to the Discharge Home Medication list for PRN reason. PICC Care - Routine: Yes - Orders Services needed: Home Care, Registered Nurse Home Care Face to Face: I certify that this patient was under my care and that I had the required [id number] encounter meeting the encounter requirements on the discharge day. My findings support the fact that the patient is homebound as defined in Home Care Face to Face Continued: CMS Chapter 7 Medicare Benefits Manual 30.1.1 , The condition of the patient is such that there exists a normal inability to leave home and consequently, leaving home would require a considerable and taxing effort. Diet Recommendation: no restrictions on diet Diet Texture: Regular Texture Diet - Labs/Radiology CBC w/diff Date: 03/08/18 CMP Date: 03/08/18 Call or Fax Lab and Imaging Results to: Dr. Rodrick Michelle, - Follow Up Care Current Providers and Referrals: Adriano Zamora MD [Medical Doctor] - 1-2 days (Call [facility] tomorrow to schedule drain removal in next few days) Patient,NotPresent [Primary Care Provider] - follow up in 1 week (Follow up with your surgeon at [facility])
[2018-03-06] MEDS ORDERED: ALTEPLASE 2 MG VIAL IVP PRN (14:32)
[2018-03-06] MEDS ORDERED: NS 1,000 ML IV ONE (14:32)
--- NOTE | 2018-03-06 14:56 | GDS ---
[f rep st] DISCHARGE SUMMARY DISCHARGE DIAGNOSIS: 1. Rotavirus infection. 2. Abdominal abscess status post Interventional Radiology drain. 3. Signet cell adenocarcinoma of the appendix with peritoneal carcinomatosis, status post intraperit dowell chemo and debulking surgery/small bowel resection complicated by anastomotic leak. 4. Peritonitis. 5. Metabolic encephalopathy. 6. Severe protein caloric malnutrition. 7. Partial small-bowel obstruction. 8. Wound dehiscence. HISTORY OF PRESENT ILLNESS: A 43-year-old male with history of signet cell carcinoma of the appendix diagnosed in 2016. He underwent debulking surgery with Dr. Hickman and admitted here 11/2017 with nausea and decreased appetite. He was recently seen at [facility] in [place] for another debulking surgery, which was complicated by incidental colotomy with 2 subsequent surgeries. He was discharged 02/06 with a wound VAC, TPN and IV antibiotics. His noticed some ongoing confusion, which was worse prior to day of admission here. He was advised to go to the emergency room after ca ing [facility] with uncontrolled nausea and vomiting. ASSESSMENT AND PLAN: 1. Abdominal abscess with peritonitis: Status post IR drain with minimal drainage today. He will c ontinue IV Invanz through 03/23 per Infectious Disease recommendations. He is to call IR tomorrow to have drain pulled by 03/09/2018. 2. Rotavirus, now having formed stools. Received supportive care here with IV fluids and antiemetic s. 3. 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 He is status post int raperitoneal chemo with favorable pathology. Has also undergone debulking surgery and small bowel re section. This was complicated by an anastomotic leak. [facility] 4. Metabolic encephalopathy: Secondary to acute illness, now resolved. 5. Severe protein caloric malnutrition: He is continuing with TPN as previously prescribed. 6. Partial small-bowel obstruction: He is tolerating p.o. and having bowel movements. 7. Wound dehiscence: Has a wound VAC in place. Will have a occupational therapist home based assist with this. 8. Normocytic anemia: H and H is stable. Denies any bleeding. 9. Deconditioning: PT ordered for home. DISPOSITION: 1. Patient is stable for discharge home with his . 2. New medications: Refilled metoprolol. 3. Lidocaine solution for dressing changes. FOLLOWUP: 1. Home care for wound VAC care, IV antibiotics and TPN. 2. Followup with Dr. Soto, his primary surgeon at [facility]. 3. Infectious Disease. /[id number]/MODL
[2018-03-07] MEDS ORDERED: LIDOCAINE HCL 4% TOPICAL SOLN 50ML MM SCH (08:00)
--- NOTE | 2018-03-07 16:18 | ASDISCHSUM ---
Discharge Information Plan Status: Medically Cleared to Leave: Discharge Date:03/06/2018 04:25 PM D/C Disposition: ADT D/C Disposition:Home, Routine, Self-Care Projected Discharge Date:03/05/2018 11:00 AM Transportation at D/C: Discharge Delay Reason: Follow-Up Date:03/05/2018 11:00 AM Discharge Slot: Final Diagnosis: Placement Information Referral Type:*Home Health Care Services Referral ID:[id number] Provider Name:[facility] Address 1:[address] Address 2: City:[place] Selection Factors: State:[place] Referral Type:Home Infusion Referral ID:[id number] Provider Name:[facility] [place] ([facility] Address 1:[address] Address 2: City:[place] Selection Factors: State:[place] Patient Contact Information Contact Name:KAMRYN Relationship: Address:[address] Work Phone: City:[place] Alternate Phone: [facility]/Zip Code:[place] [address] Email: Financial Information Financial Class:HMO and PPO Plans Primary Plan Desc: OUT OF [facility] PPO Primary Plan Number:[id number] Secondary Plan Desc: Secondary Plan Number: Assessment Information [facility] Progress Note CM Note CM Note Notes: Pt admitted to hospital with n/v. Pt has had a complicated medical course from appendiceal ca. Pt was recently discharged from [facility] in [place] with TPN, IV abx, and a wound vac. YUDY spoke with who is present at bedside,he is current with [employer] and [employer], his hh RN is Karishma. CM notified both agencies that pt was in hospital. His explained that Karishma was supposed to come yesterday to change dressing but they had to come to hospital, she is concerned dressing hasn't been changed yet. notifed RN, she was going to page wound care. DC date unclear, anticipate pt will dc home w/current agency help. DC Plan: [facility] ([facility]) Date Signed: 03/03/2018 01:29 PM Electronically Signed By:Ann Bright RN Case Management Discharge Plan Note Case Management Discharge Discharge Order Complete? Answers: Yes Patient to Obtain Answers: Independently Medications Transportation Arranged Answers: Family/Friends Faxed Final Orders Answers: Yes Discharge Comments Notes: Patient discharged home with and family. Orders send to [facility] and [facility]. Patient's home vac placed back on by JUAN MIGUEL Lopez and patient's home meds delivered to room by our pharmacist. Date Signed: 03/06/2018 03:21 PM Electronically Signed By:Thania Mehta RN Intervention Information
== END 2018-03-06 16:25 | disposition home or self-care (01) | DRG 371 ==
LOC: F1N 16:41
PROVIDERS: ADMIT Internal Medicine; ATTEND Internal Medicine
PROC: 0D9W30Z Drainage of Peritoneum with Drainage Device, Percutaneous Approach (ICD-10-PCS; principal; 2018-03-02)
DX: K65.1 Peritoneal abscess (principal); G93.41 Metabolic encephalopathy; A08.0 Rotaviral enteritis; K56.600 Partial intestinal obstruction, unspecified as to cause; E43 Unspecified severe protein-calorie malnutrition; C78.6 Secondary malignant neoplasm of retroperitoneum and peritoneum; Z85.09 Personal history of malignant neoplasm of other digestive organs; D50.9 Iron deficiency anemia, unspecified; B37.0 Candidal stomatitis; Z87.891 Personal history of nicotine dependence
CPT/HCPCS: 97161-GP; 97166-GO; C1769; J1170; J1335; J2060; J2250; J2310; J2543; J2550; J2997; J3010; J3370; J3475; J3480; Q9967